=== PATIENT | female | born 1990 | race Caucasian/White ===

== ENCOUNTER 2016-04-17 15:36 | Emergency (ER) | payer OTHER ==
[~2016-04-17] VITALS: Ht 165.1 cm; Wt 57.1 kg
[~2016-04-17 15:36] MED LIST: PREN1CAP20 PO
[2016-04-17 15:54] VITALS: TEMP 36.8; Ht 165.1 cm; Wt 57.1 kg
[2016-04-17] MEDS ORDERED: KETOROLAC TROMETHAMINE 30 MG/ML VIAL IV STA (16:37)
[2016-04-17] MEDS ORDERED: ETONMIS VAGRING (16:55)
[2016-04-17] MEDS ORDERED: SULF500T36 PO (16:58)
[2016-04-17] MEDS ORDERED: GABA-112 PO (16:59)
[2016-04-17 17:04] LABS: BASO % 0.2 %; BASO ABS # 0.02 K/uL (0-0.2); COMPLETE YES; EOS % 3.1 %; HEMATOCRIT 36.6 % (37-47); IG% 0.2 %; LYMPH % 23.4 %; LYMPH ABS # 1.96 K/uL (1.2-3.4); MEAN CORPUSCULAR HEMOGLOBIN 31.3 pg (25-34); MEAN CORPUSCULAR HGB CONC 35.5 g/dl (32-36); MEAN PLATELET VOLUME 9.3 fL (7.4-10.4); MONO % 6.3 %; NEUT % 66.8 %; PLATELET COUNT 240 K/uL (130-400); RED BLOOD COUNT 4.16 M/uL (4.2-5.4); WHITE BLOOD COUNT 8.36 K/uL (4.8-10.8)
--- NOTE | 2016-04-17 17:21 | DIAGNOSTIC IMAGING REPORT ---
CHEST ONE VIEW PORTABLE CLINICAL HISTORY: Atypical chest pain and right rib pain. COMPARISON STUDY: 02/20/2014 FINDINGS: The cardiac and mediastinal contours are normal. There is no evidence of focal pulmonary consolidation. There is no evidence of failure. No pleural effusions are visualized.[ No pneumothorax is visualized. IMPRESSION: No active disease in the chest. Electronically signed by: Zachary Leo M.D. 04/17/2016 5:20 PM Dictated Date/Time: 04/17/2016 5:19 PM
[2016-04-17 17:22] LABS: ALT/SGPT 138 U/L (12-78); BLOOD UREA NITROGEN 11 mg/dl (7-18); BUN/CREATININE RATIO 13.5 (10-20); CALCIUM 8.7 mg/dl (8.5-10.1); CARBON DIOXIDE 21 mmol/L (21-32); CHLORIDE 109 mmol/L (98-107); GLUCOSE 87 mg/dl (70-99); POTASSIUM 3.9 mmol/L (3.5-5.1); SODIUM 141 mmol/L (136-145)
[2016-04-17 17:26] LABS: ALKALINE PHOSPHATASE 125 U/L (45-117); AST/SGOT 61 U/L (15-37)
[2016-04-17 17:40] LABS: PREG INTERNAL NEGATIVE QC NEG CLEAR BACKGROUND; PREG INTERNAL POSITIVE QC POS CONTROL LINE
[2016-04-17] MEDS ORDERED: OPTIRAY 320 IV PRN (17:45)
--- NOTE | 2016-04-17 17:53 | EMERGENCY ROOM VISIT NOTE ---
History Report prepared by Pao: Aidee Bowman Under the Supervision of: Dr. Camilo Osorio M.D. First contact with patient: 16:09 Chief Complaint: RIB PAIN Stated Complaint: RIGHT RIB PAIN History of Present Illness The patient is a 26 year old female who presents to the Emergency Room with complaints of worsening right-sided rib pain that started 4 hours ago. The patient states that the pain started while she was driving to class. The pain came on suddenly, but it was mild when it started and gradually got more intense. The pain took her breath away and was worse as she continued to breath. She denies doing anything that to injure or stretch the area. However, she states that the pain seems to be subsiding some now. She experienced a similar pain in the past and received an ultrasound, but the cause was not determined. The patient denies fevers, recent illness, breast pain, breast discharge, lower extremity pain or edema, hematochezia, and melena. She is also experiencing a headache, but states that she typically experiences headaches. The patient has a history of an ectopic . She has two kids at home, one is 5 and the other is 17 months. She is not breast feeding and she denies any chance of . The patient has a Nuva ring in place. The patient denies any personal or family history of blood clots. She also denies any recent travel. The patient is a smoker. Source of History: patient Onset: 4 hours ago Position: chest (right ribs) Quality: other (rib pain) Timing: worsening Modifying Factors (Worsening): breathing Associated Symptoms: + headache, No fevers, No hematochezia, No melena Note: no recent illness, no breast pain, no breast discharge, no lower extremity pain or edema Review of Systems See HPI for pertinent positives & negatives. A total of 10 systems reviewed and were otherwise negative. Past Medical & Surgical Medical Problems: (1) Abdominal pain (2) contractions (3) Dehydration (4) Diarrhea (5) Dizziness (6) Musculoskeletal strain (7) Nausea (8) Nausea vomiting and diarrhea (9) Nausea vomiting and diarrhea (10) Other specified complication, antepartum (11) Paresthesias (12) (13) contractions (14) Pyelonephritis (15) Right flank pain (16) Scoliosis (17) Scoliosis (18) Upper back pain (19) Vaginal bleeding before 22 weeks gestation (20) Vaginal bleeding during , antepartum (21) Vomiting Surgical Problems: (1) Tubal ectopic (2) Vaginal bleeding before 22 weeks gestation Old medical records were reviewed. Nurse's notes were reviewed and I agree with. Family History Patient reports no known family medical history. Social History Smoking Status: Current Every Day Smoker Alcohol Use: occasionally Drug Use: none Marital Status: single Housing Status: lives with family Occupation Status: employed Current/Historical Medications Scheduled Etonogestrel/Ethinyl Estradiol (Nuvaring), 1 EA VAGRING MONTHLY Gabapentin (Neurontin), 100 MG PO BID Sulfasalazine (Azulfidine), 1,000 MG PO DAILY Allergies Coded Allergies: No Known Allergies (Unverified , 11/09/14) Physical Exam Vital Signs Date Time Temp Pulse Resp B/P Pulse Ox O2 Delivery O2 Flow Rate FiO2 04/17/16 18:20 70 15 121/72 98 Room Air 04/17/16 15:54 36.8 87 18 145/86 98 Room Air Physical Exam General: Well developed well nourished mildly uncomfortable young female in no respiratory distress, breathing comfortably on room air. Normal speech HEENT: Normal cephalic atraumatic. Pupils are equal round and reactive to light. Extraocular movements are intact. Oropharynx is pink with moist mucous membranes. No swelling of the mouth lips or tongue. Neck: Supple with a midline trachea. No meningeal signs or stiffness, no JVD or bruits. No Stridor. Chest: Clear to auscultation bilaterally. No wheezes or rhonchi. No increased work of breathing. No reproducible tenderness. Heart: regular rate and rhythm. Abdomen: Soft nontender, nondistended without rebound guarding or rigidity. Extremities: No cyanosis clubbing or edema. No calf tenderness or assymetry Spine/Back. Non tender to palpation. No CVA tenderness Skin: Good turgor without rashes. Neurologic exam: Cranial nerves two through 12 are intact. Motor and sensation are intact and symmetrical throughout. Medical Decision & Procedures ER Provider Diagnostic Interpretation: X ray results as stated below per my interpretation and radiologist interpretation. Other radiology results as stated below per my review and radiologist interpretation: CHEST ONE VIEW PORTABLE IMPRESSION: No active disease in the chest. Electronically signed by: Zachary Leo M.D. 04/17/2016 5:20 PM Dictated Date/Time: 04/17/2016 5:[address] ANGIOGRAM OF THE CHEST IMPRESSION: 1. No CT evidence of acute pulmonary embolism 2. No evidence of pneumothorax 3. No evidence of pathologic adenopathy 4. Minimal right upper lobe airspace opacities, likely inflammatory. Electronically signed by: Zachary Leo M.D. 04/17/2016 6:15 PM Dictated Date/Time: 04/17/2016 6:10 PM BILIARY ULTRASOUND IMPRESSION: Normal study Electronically signed by: Zachary Leo M.D. 04/17/2016 7:23 PM Dictated Date/Time: 04/17/2016 7:22 PM Laboratory Results 04/17/16 16:54 Red Blood Count 4.16, Mean Corpuscular Volume 88.0, Mean Corpuscular Hemoglobin 31.3, Mean Corpuscular Hemoglobin Concent 35.5, Mean Platelet Volume 9.3, Neutrophils (%) (Auto) 66.8, Lymphocytes (%) (Auto) 23.4, Monocytes (%) (Auto) 6.3, Eosinophils (%) (Auto) 3.1, Basophils (%) (Auto) 0.2, Neutrophils # (Auto) 5.57, Lymphocytes # (Auto) 1.96, Monocytes # (Auto) 0.53, Eosinophils # (Auto) 0.26, Basophils # (Auto) 0.02 04/17/16 16:54 Test 04/17/16 16:54 04/17/16 16:58 White Blood Count 8.36 K/uL (4.8-10.8) Red Blood Count 4.16 M/uL (4.2-5.4) Hemoglobin 13.0 g/dL (12.0-16.0) Hematocrit 36.6 % (37-47) Mean Corpuscular Volume 88.0 fL (80-100) Mean Corpuscular Hemoglobin 31.3 pg (25-34) Mean Corpuscular Hemoglobin Concent 35.5 g/dl (32-36) Platelet Count 240 K/uL (130-400) Mean Platelet Volume 9.3 fL (7.4-10.4) Neutrophils (%) (Auto) 66.8 % Lymphocytes (%) (Auto) 23.4 % Monocytes (%) (Auto) 6.3 % Eosinophils (%) (Auto) 3.1 % Basophils (%) (Auto) 0.2 % Neutrophils # (Auto) 5.57 K/uL (1.4-6.5) Lymphocytes # (Auto) 1.96 K/uL (1.2-3.4) Monocytes # (Auto) 0.53 K/uL (0.11-0.59) Eosinophils # (Auto) 0.26 K/uL (0-0.5) Basophils # (Auto) 0.02 K/uL (0-0.2) RDW Standard Deviation 42.6 fL (36.4-46.3) RDW Coefficient of Variation 13.3 % (11.5-14.5) Immature Granulocyte % (Auto) 0.2 % Immature Granulocyte # (Auto) 0.02 K/uL (0.00-0.02) Anion Gap 11.0 mmol/L (3-11) Est Creatinine Clear Calc Drug Dose 95.9 ml/min Estimated GFR () 117.9 Estimated GFR (Non- 101.8 BUN/Creatinine Ratio 13.5 (10-20) Calcium Level 8.7 mg/dl (8.5-10.1) Total Bilirubin 0.3 mg/dl (0.2-1) Direct Bilirubin < 0.1 mg/dl (0-0.2) Aspartate Amino Transf (AST/SGOT) 61 U/L (15-37) Alanine Aminotransferase (ALT/SGPT) 138 U/L (12-78) Alkaline Phosphatase 125 U/L (45-117) Troponin I < 0.015 ng/ml (0-0.045) Total Protein 7.5 gm/dl (6.4-8.2) Albumin 3.4 gm/dl (3.4-5.0) Lipase 158 U/L (73-393) Human Chorionic Gonadotropin, Qual NEG (NEG) Bedside D-Dimer > 450 ng/mlFEU (0-450) Laboratory studies as stated above per my review. Medications Administered Medications (Trade) Dose Ordered Sig/Richard Route Start Time Stop Time Status Last Admin Dose Admin Ketorolac Tromethamine (Toradol Inj) 30 mg NOW STAT IV 04/17/16 16:37 04/17/16 16:38 DC 04/17/16 17:04 30 MG ECG Indication: chest pain Rate (beats per minute): 74 Rhythm: normal sinus Findings: no acute ischemic change, no ectopy Comparison ECG Date: 03/24/2014 Change: no significant change ED Course 161: Past medical records reviewed. The patient was evaluated in room A2, and a complete history and physical examination were performed. 1636: Ordered Toradol Inj 30 mg IV 1743: I reassessed the patient. She is resting comfortably. Her rib pain is improved and she states that she is just sore now. I explained the risks and benefits of a CT scan with her and she agreed to have the CT done. 1849: I reassessed and updated the patient. She agreed to getting an ultrasound done. 1926: Upon reevaluation, the patient is doing well. I discussed the results and treatment plan with her. She verbalized agreement of the treatment plan. The patient was discharged home. Medical Decision Differentials include, but are not limited to; musculoskeletal pain, pulmonary embolism, pneumothorax, acute coronary syndrome, electrolyte or metabolic abnormality. This patient comes in as described above she has right-sided chest pain that occurred abruptly. She has no rash or trauma. IV access was established and she was given Toradol 30 mg IV and felt better she still has some achiness in her chest. EKG does not suggest acute coronary syndrome or arrhythmia. Chest x -ray was unremarkable and shows no evidence to suggest pneumonia or pneumothorax or CHF. She has no electrolyte or metabolic abnormalities. Her d- dimer was elevated and in light of this, I did order a CT of her chest. There is no evidence of PE. There are some nonspecific haziness in the apex. Clinically, she has no cough or any symptoms to suggest pneumonia. I also did get an ultrasound because her LFTs are marginally elevated no evidence of gallbladder disease. This most likely is costochondritis. She is better and it is reproducible with movement of breathing. I will have her use ibuprofen for pain. She should take with food. Return if: Fever or chills, increasing pain, worsening of symptoms, any new problems or concerns. She should follow up with her doctor in 1-2 days for recheck or return to the ER if symptoms worsening in any point. She's happy with the plan and discharged to home. Impression Primary Impression: Right-sided chest pain Scribe Attestation The scribe's documentation has been prepared under my direction and personally reviewed by me in its entirety. I confirm that the note above accurately reflects all work, treatment, procedures, and medical decision making performed by me. Departure Information Dispostion Home / Self-Care Referrals Rudi Munoz M.D. (PCP) Forms HOME CARE DOCUMENTATION FORM, IMPORTANT VISIT INFORMATION, WORK / SCHOOL INSTRUCTIONS Patient Instructions My [facility] Additional Instructions Rest. Drink plenty of fluids. Use ibuprofen 600 mg every 6 hours, take with food. Return if: Increasing pain, fever or chills, worsening of symptoms, shortness of breath, any new problems or concerns. Follow up with in 1-2 days for recheck or return to the ER at any point if symptoms worsen.
--- NOTE | 2016-04-17 18:16 | DIAGNOSTIC IMAGING REPORT ---
CT ANGIOGRAM OF THE CHEST CLINICAL HISTORY: Right-sided chest pain. COMPARISON STUDY: 05/06/2012 TECHNIQUE: Following the IV administration of 119 mL of Optiray-320, CT angiogram of the thorax was performed from the thoracic inlet to the lung bases utilizing the pulmonary embolus protocol. Images are reviewed in the axial, sagittal, and coronal planes. IV contrast was administered without complication. MIP imaging was performed. CT DOSE: 189.37 mGy.cm FINDINGS: No pathologically enlarged axillary mediastinal or hilar lymph nodes were visualized. There was no evidence of thoracic aortic dilatation. There were no pulmonary artery filling defects to indicate acute pulmonary embolism. No pleural effusions are visualized. There are subtle fluffy right upper lobe airspace opacities, likely inflammatory IMPRESSION: 1. No CT evidence of acute pulmonary embolism 2. No evidence of pneumothorax 3. No evidence of pathologic adenopathy 4. Minimal right upper lobe airspace opacities, likely inflammatory. Electronically signed by: Zachary Leo M.D. 04/17/2016 6:15 PM Dictated Date/Time: 04/17/2016 6:10 PM
--- NOTE | 2016-04-17 19:24 | DIAGNOSTIC IMAGING REPORT ---
BILIARY ULTRASOUND CLINICAL HISTORY: Right upper quadrant abdominal pain COMPARISON STUDY: No previous studies for comparison. FINDINGS: The liver appears sonographically normal. There is no right-sided hydronephrosis. The pancreas appears sonographically normal. The gallbladder appears sonographically normal. There is no ductal dilatation. The common bile duct measures 2 mm. IMPRESSION: Normal study Electronically signed by: Zachary Leo M.D. 04/17/2016 7:23 PM Dictated Date/Time: 04/17/2016 7:22 PM
[2016-04-17 20:07] VITALS: BP 131/70; PULSE 67; O2SAT 99
== END 2016-04-17 20:08 | disposition home or self-care (01) ==
LOC: C.EDB 15:38 → C.EDA 20:08
DX: R07.9 Chest pain, unspecified (principal); R51 Headache; F17.210 Nicotine dependence, cigarettes, uncomplicated; Z79.899 Other long term (current) drug therapy

== ENCOUNTER → 2016-08-22 | Outpatient (CLI) | payer OTHER ==
[~2016-08-22] MED LIST changes: +CLON0.5T PO; +ETONMIS VAGRING; +GABA-112 PO; -PREN1CAP20 PO; +SULF500T36 PO
== END | disposition home or self-care (01) ==
LOC: C.PATHSPEC 17:20
PROVIDERS: ATTEND Physician Assistant
DX: N93.0 Postcoital and contact bleeding (principal)

== ENCOUNTER → 2016-08-22 | Outpatient (CLI) | payer OTHER ==
[2016-08-26 10:49] LABS: CHLAMYDIA TRACH RNA*** NOT DETECTED (NOT DETECTED); GC (NEIS GONORRHOEAE)RNA** NOT DETECTED (NOT DETECTED)
== END | disposition home or self-care (01) ==
LOC: C.LABSPEC 16:53
PROVIDERS: ATTEND Physician Assistant
DX: N93.0 Postcoital and contact bleeding (principal)

== ENCOUNTER → 2016-08-22 | Outpatient (CLI) | payer OTHER | END | disposition home or self-care (01) | LOC: C.PAPS 09:56 | PROVIDERS: ATTEND Physician Assistant | DX: Z12.4 Encounter for screening for malignant neoplasm of cervix (principal) ==

== ENCOUNTER 2016-09-29 12:09 | Emergency (ER) | payer OTHER ==
[~2016-09-29] VITALS: Ht 165.1 cm; Wt 58.0 kg
[~2016-09-29 12:09] MED LIST changes: -CLON0.5T PO
[2016-09-29 12:14] VITALS: TEMP 36.8; Ht 165.1 cm; Wt 58.0 kg
--- NOTE | 2016-09-29 12:45 | DIAGNOSTIC IMAGING REPORT ---
RIGHT FOOT MIN 3 VIEWS ROUTINE CLINICAL HISTORY: fall Right trauma. Pain. COMPARISON: None. DISCUSSION: The bones and joint spaces appear intact. There is no evidence of fracture, dislocation or bony disease. There is no evidence for soft tissue swelling. IMPRESSION: Negative study. The above report was generated using voice recognition software. It may contain grammatical, syntax or spelling errors. Electronically signed by: Geremias Moscoso M.D. 09/29/2016 12:44 PM Dictated Date/Time: 09/29/2016 12:43 PM
[2016-09-29] MEDS ORDERED: CLON0.5T PO (12:51)
--- NOTE | 2016-09-29 13:24 | EMERGENCY ROOM VISIT NOTE ---
ED Visit Note First contact with patient: 12:31 CHIEF COMPLAINT: Foot pain HISTORY OF PRESENT ILLNESS: This 26-year-old female patient presents to the emergency department complaining of swelling and pain in the right foot at rest and worse with weight bearing. The patient states she was up on someone's shoulders last night, when she got down she stepped onto the right foot and twisted it with immediate pain. The patient rates the pain as throbbing and 7/ 10. The patient has not taken any medications for relief of the pain. The patient is not able to walk. No numbness or weakness. No ankle pain. There are no lacerations of the foot. The patient is able to move all of their toes and their ankle without pain. No previous fracture to this foot. REVIEW OF SYSTEMS: GENERAL: A 6 system review of systems was completed with positives and pertinent negatives in the HPI. ALLERGIES: See chart MEDICATIONS: See chart PMH: See chart SOCIAL HISTORY: See chart PHYSICAL EXAM: Vital Signs: Reviewed Nurse's notes, vital signs stable. GENERAL : Alert and cooperative, in no acute distress, but appears in pain, well- developed, well-nourished. MUSCULOSKELATAL: There is no visual deformity of the right foot. There is no erythema, but there is ecchymosis. There is no warmth. There is tenderness and swelling over the lateral dorsum of the right foot. There is no tenderness over the lateral or medial malleolus. No tenderness of the tib/fib. The range of motion of the foot and ankle is significantly limited secondary to pain. There is no tenderness over the plantar fascia. The skin is intact and there are no lacerations or puncture wounds. Dorsalis pedis pulse 2+. Capillary refill less than 2 seconds. EMERGENCY DEPARTMENT COURSE: I examined the patient. An X-ray of the right foot was reviewed by myself and radiologist and reveals no acute fracture. I suspect a lateral ligamentous injury from twisting of the foot/ankle. The patient was placed in general ankle splint for stabilization of the lateral ligaments and instructed on the use of crutches. The patient was instructed to follow up with her PCP or orthopedics for further evaluation. Patient was provided with a work note. The patient was discharged home in good condition. Problem List Medical Problems: (1) Abdominal pain Status: Resolved (2) contractions Status: Resolved (3) Dehydration Status: Resolved (4) Diarrhea Status: Resolved (5) Dizziness Status: Resolved (6) Musculoskeletal strain Status: Resolved (7) Nausea Status: Resolved (8) Nausea vomiting and diarrhea Status: Resolved (9) Nausea vomiting and diarrhea Status: Resolved (10) Other specified complication, antepartum Status: Resolved (11) Paresthesias Status: Resolved (12) Status: Resolved (13) contractions Status: Resolved (14) Pyelonephritis Status: Resolved (15) Right flank pain Status: Resolved (16) Scoliosis Status: Chronic (17) Scoliosis Status: Resolved (18) Upper back pain Status: Resolved (19) Vaginal bleeding before 22 weeks gestation Status: Resolved (20) Vaginal bleeding during , antepartum Status: Resolved (21) Vomiting Status: Resolved Surgical Problems: (1) Tubal ectopic Status: Resolved (2) Vaginal bleeding before 22 weeks gestation Status: Resolved Current/Historical Medications Scheduled Clonazepam (Klonopin), 0.25 MG PO TID Etonogestrel/Ethinyl Estradiol (Nuvaring), 1 EA VAGRING MONTHLY Allergies Coded Allergies: No Known Allergies (Unverified , 09/29/16) Vital Signs Date Time Temp Pulse Resp B/P (MAP) Pulse Ox O2 Delivery O2 Flow Rate FiO2 09/29/16 14:14 84 20 121/70 97 09/29/16 12:14 36.8 94 20 110/67 97 Room Air Medications Administered Medications (Trade) Dose Ordered Sig/Richard Route Start Time Stop Time Status Last Admin Dose Admin Ibuprofen (Motrin Tab) 600 mg NOW STAT PO 09/29/16 13:28 09/29/16 13:29 DC 09/29/16 13:34 600 MG Departure Information Impression Primary Impression: Contusion of foot Additional Impression: Right foot sprain Dispostion Home / Self-Care Condition GOOD Referrals Rudi Munoz M.D. (PCP) Basim Blanchard M.D. Patient Instructions ED Contusion Foot, ED Sprain Foot, My [facility] Additional Instructions Ice and elevation for 24-48 hrs to help reduce pain and swelling. Ibuprofen 600mg and Tylenol 1000 mg every 6-8 hours for the pain. Avoid weight bearing and use crutches until the pain subsides and you can walk without a limp. Wear the ankle splint for comfort. Follow up with family doctor or orthopedic surgeon if symptoms persist in 5-7 days. Work Instructions Return To Work: after follow-up (no work until cleared by PCP or orthopedic doctor) Problem Qualifiers Primary Impression: Contusion of foot Encounter type: initial encounter Laterality: right Qualified Codes: S90.31XA - Contusion of right foot, initial encounter Additional Impression: Right foot sprain Encounter type: initial encounter Qualified Codes: S93.601A - Unspecified sprain of right foot, initial encounter
[2016-09-29] MEDS ORDERED: IBUPROFEN 600 MG TAB PO STA (13:28)
[2016-09-29 14:14] VITALS: BP 121/70; PULSE 84; O2SAT 97
== END 2016-09-29 14:15 | disposition home or self-care (01) ==
LOC: C.EDB 12:09 → C.EDD 14:15
DX: S90.31XA Contusion of right foot, initial encounter (principal); S93.601A Unspecified sprain of right foot, initial encounter; X50.1XXA Overexertion from prolonged static or awkward postures, initial encounter; Z79.899 Other long term (current) drug therapy

== ENCOUNTER 2017-07-09 19:36 | Emergency (ER) | payer OTHER ==
[~2017-07-09] VITALS: Ht 165.1 cm; Wt 55.2 kg
[~2017-07-09 19:36] MED LIST changes: +CLON0.5T PO; -GABA-112 PO; -SULF500T36 PO
[2017-07-09 19:45] VITALS: TEMP 36.6; Ht 165.1 cm; Wt 55.2 kg
--- NOTE | 2017-07-09 20:09 | EMERGENCY ROOM VISIT NOTE ---
History Report prepared by Pao: Bethany Rosas Under the Supervision of: Dr. Arlen Kaba D.O. First contact with patient: 19:54 Chief Complaint: ABDOMINAL PAIN Stated Complaint: RIGHT SIDE PAIN Nursing Triage Summary: patient reports abdominal pain in RLQ for about 1 hour. Patient states "pain comes and goes like contractions." History of Present Illness The patient is a 27 year old female who presents to the Emergency Room with complaints of constant right-sided abdominal and flank pain beginning an hour prior to arrival. The patient also reports vomiting from the pain but denies headache, change in vision, fevers, chest pain, shortness of breath, diarrhea, pain with urination, and melena. She states that she has had this pain before but is unsure of the cause. The patient denies a history of kidney stones, an appendectomy, and cholecystectomy. The patient reports that there is a chance she may be . Review of EMR: She had an ultrasound gallbladder last year that was normal. She also had a CT angiochest done at the same time that was normal. Source of History: patient Onset: an hour prior to arrival Position: abdomen (right-sided), other (right flank ) Quality: other (pain) Timing: constant Associated Symptoms: + vomiting, No fevers Review of Systems See HPI for pertinent positives & negatives. A total of 10 systems reviewed and were otherwise negative. Past Medical & Surgical Medical Problems: (1) Abdominal pain (2) contractions (3) Dehydration (4) Diarrhea (5) Dizziness (6) Musculoskeletal strain (7) Nausea (8) Nausea vomiting and diarrhea (9) Nausea vomiting and diarrhea (10) Other specified complication, antepartum (11) Paresthesias (12) (13) contractions (14) Pyelonephritis (15) Right flank pain (16) Scoliosis (17) Scoliosis (18) Upper back pain (19) Vaginal bleeding before 22 weeks gestation (20) Vaginal bleeding during , antepartum (21) Vomiting Surgical Problems: (1) Tubal ectopic (2) Vaginal bleeding before 22 weeks gestation Family History Gallbladder disease Hypertension Social History Smoking Status: Current Every Day Smoker Alcohol Use: occasionally Drug Use: none Marital Status: single Housing Status: lives with family Occupation Status: employed Current/Historical Medications Scheduled Amphetamine-Dextroamphetamine 15MG (Adderall Xr 15MG), 15 MG PO DAILY Clonazepam (Klonopin), 0.25 MG PO TID Etonogestrel/Ethinyl Estradiol (Nuvaring), 1 EA VAGRING MONTHLY Allergies Coded Allergies: No Known Allergies (Unverified , 07/09/17) Physical Exam Vital Signs Date Time Temp Pulse Resp B/P (MAP) Pulse Ox O2 Delivery O2 Flow Rate FiO2 07/09/17 21:32 68 20 122/82 96 07/09/17 21:00 79 07/09/17 19:45 36.6 82 22 120/75 96 Room Air Physical Exam GENERAL: alert, well appearing, well nourished, moderate distress, non-toxic. Patient was squatted next to bed holding an emesis bag. EYE EXAM: normal conjunctiva, PERRL and EOM's grossly intact OROPHARYNX: no exudate, no erythema, lips, buccal mucosa, and tongue normal and mucous membranes are moist NECK: supple, no nuchal rigidity, no adenopathy, non-tender LUNGS: Clear to auscultation. Normal chest wall mechanics HEART: no murmurs, S1 normal and S2 normal ABDOMEN: abdomen soft, right upper quadrant tenderness, no right flank tenderness, normo-active bowel sounds, no masses, no rebound or guarding. BACK: Back is symmetrical on inspection and there is no deformity, no midline tenderness, no CVA tenderness. SKIN: no rashes and no bruising UPPER EXTREMITIES: upper extremities are grossly normal. LOWER EXTREMITIES: No pitting edema. NEURO EXAM: Normal sensorium, cranial nerves II-XII intact, normal speech, no weakness of arms, no weakness of legs. Medical Decision & Procedures Laboratory Results 07/09/17 20:00 Red Blood Count 4.39, Mean Corpuscular Volume 89.7, Mean Corpuscular Hemoglobin 31.2, Mean Corpuscular Hemoglobin Concent 34.8, Mean Platelet Volume 9.2, Neutrophils (%) (Auto) 56.5, Lymphocytes (%) (Auto) 33.4, Monocytes (%) (Auto) 7.2, Eosinophils (%) (Auto) 2.2, Basophils (%) (Auto) 0.4, Neutrophils # (Auto) 6.33, Lymphocytes # (Auto) 3.74, Monocytes # (Auto) 0.81, Eosinophils # (Auto) 0.25, Basophils # (Auto) 0.05 07/09/17 20:00 Test 07/09/17 20:00 07/09/17 20:36 White Blood Count 11.21 K/uL (4.8-10.8) Red Blood Count 4.39 M/uL (4.2-5.4) Hemoglobin 13.7 g/dL (12.0-16.0) Hematocrit 39.4 % (37-47) Mean Corpuscular Volume 89.7 fL (80-100) Mean Corpuscular Hemoglobin 31.2 pg (25-34) Mean Corpuscular Hemoglobin Concent 34.8 g/dl (32-36) Platelet Count 293 K/uL (130-400) Mean Platelet Volume 9.2 fL (7.4-10.4) Neutrophils (%) (Auto) 56.5 % Lymphocytes (%) (Auto) 33.4 % Monocytes (%) (Auto) 7.2 % Eosinophils (%) (Auto) 2.2 % Basophils (%) (Auto) 0.4 % Neutrophils # (Auto) 6.33 K/uL (1.4-6.5) Lymphocytes # (Auto) 3.74 K/uL (1.2-3.4) Monocytes # (Auto) 0.81 K/uL (0.11-0.59) Eosinophils # (Auto) 0.25 K/uL (0-0.5) Basophils # (Auto) 0.05 K/uL (0-0.2) RDW Standard Deviation 43.1 fL (36.4-46.3) RDW Coefficient of Variation 13.3 % (11.5-14.5) Immature Granulocyte % (Auto) 0.3 % Immature Granulocyte # (Auto) 0.03 K/uL (0.00-0.02) Prothrombin Time 10.7 SECONDS (9.0-12.0) Prothromb Time International Ratio 1.0 (0.9-1.1) Anion Gap 4.0 mmol/L (3-11) Est Creatinine Clear Calc Drug Dose 96.9 ml/min Estimated GFR () 124.6 Estimated GFR (Non- 107.5 BUN/Creatinine Ratio 8.0 (10-20) Calcium Level 9.5 mg/dl (8.5-10.1) Magnesium Level 2.0 mg/dl (1.8-2.4) Total Bilirubin 0.6 mg/dl (0.2-1) Aspartate Amino Transf (AST/SGOT) 14 U/L (15-37) Alanine Aminotransferase (ALT/SGPT) 30 U/L (12-78) Alkaline Phosphatase 57 U/L (45-117) Total Protein 7.6 gm/dl (6.4-8.2) Albumin 3.7 gm/dl (3.4-5.0) Globulin 3.9 gm/dl (2.5-4.0) Albumin/Globulin Ratio 1.0 (0.9-2) Lipase 154 U/L (73-393) Human Chorionic Gonadotropin, Qual NEG (NEG) Bedside Lactic Acid Venous 0.96 mmol/L (0.90-1.70) Laboratory results per my review. Medications Administered Medications (Trade) Dose Ordered Sig/Richard Route Start Time Stop Time Status Last Admin Dose Admin Sodium Chloride 1,000 ml @ 999 mls/hr Q1H1M STAT IV 07/09/17 20:20 07/09/17 21:20 DC 07/09/17 20:28 999 MLS/HR Prochlorperazine Edisylate (Compazine Inj) 5 mg NOW STAT IV 07/09/17 20:20 07/09/17 20:23 DC 07/09/17 20:27 5 MG Diphenhydramine HCl (Benadryl Inj) 25 mg NOW STAT IV 07/09/17 20:20 07/09/17 20:23 DC 07/09/17 20:28 25 MG ED Course 2004: The patient was evaluated in room B12B. A complete history and physical exam was performed. 2019: Ordered Benadryl Inj 25 mg IV, Compazine Inj 5 mg IV. 2127: The patient left against medical advice. Medical Decision The patient is a 27 year old female who presents to the ED with complaints of abdominal pain. Differential diagnosis: Etiologies such as appendicitis, diverticulitis, PUD, biliary pathology, UTI, pancreatitis, obstruction, mesenteric ischemia, aortic pathology, infections, inflammatory bowel disease, renal colic, as well as others were entertained. Patient here in significant distress on initial evaluation, after labs resulted normal review of EMR, patient stated that she wished to leave. Discussed with her unknown etiology of her pain my concern that she may need imaging to better evaluate for underlying pathology. Patient refused stating she has had these pains before and they go away on their own. The patient has had prior right upper quadrant ultrasound and CAT scan of the chest she has never had a CAT scan of the abdomen or pelvis or a renal ultrasound. I discussed with her possible differential diagnosis of her pain and any worse case scenario including possible long-term disability or . Patient verbalized understanding of this and is willing to accept responsibly for her condition and is choosing to go home AGAINST MEDICAL ADVICE. [place] Drug Monitoring Program Search Results: patient reviewed within database, no issues identified Medication Reconcilliation Current Medication List: was personally reviewed by me Blood Pressure Screening Patient's blood pressure: Normal blood pressure Impression Primary Impression: Right flank pain Additional Impressions: RUQ pain Vomiting Scribe Attestation The scribe's documentation has been prepared under my direction and personally reviewed by me in its entirety. I confirm that the note above accurately reflects all work, treatment, procedures, and medical decision making performed by me. Departure Information Dispostion Against Medical Advice Referrals Rudi Munoz M.D. (PCP) Forms HOME CARE DOCUMENTATION FORM, IMPORTANT VISIT INFORMATION Patient Instructions My [facility] Additional Instructions You are welcome to return to the emergency room at any time. By leaving AGAINST MEDICAL ADVICE you are assuming responsibility for your condition and any possible complications. Because we have not yet completed your evaluation, we did not yet know the etiology of your pain and vomiting. Please follow-up with your family doctor as soon as possible given your episode of this. There are several things which could explain your pain and vomiting, and if these are untreated they could result in long-term disability or even . Problem Qualifiers Additional Impressions: Vomiting Vomiting type: unspecified Vomiting Intractability: non-intractable Nausea presence: with nausea Qualified Codes: R11.2 - Nausea with vomiting, unspecified
[2017-07-09] MEDS ORDERED: DiphenhydrAMINE HCL 50 MG/ML VIAL IV STA (20:20)
[2017-07-09] MEDS ORDERED: PROCHLORPERAZINE 5 MG/ML 2 ML VIAL IV STA (20:20)
[2017-07-09] MEDS ORDERED: SODIUM CHLORIDE 0.9% 1000ML 1,000 ML IV STA (20:20)
[2017-07-09] MEDS ORDERED: DiphenhydrAMINE HCL 50 MG/ML VIAL ONE (20:23)
[2017-07-09] MEDS ORDERED: PROCHLORPERAZINE 5 MG/ML 2 ML VIAL ONE (20:23)
[2017-07-09] MEDS ORDERED: AMPH15CA7 PO (20:32)
[2017-07-09 20:43] LABS: BASO % 0.4 %; BASO ABS # 0.05 K/uL (0-0.2); EOS % 2.2 %; EOS ABS # 0.25 K/uL (0-0.5); HEMATOCRIT 39.4 % (37-47); HEMOGLOBIN 13.7 g/dL (12.0-16.0); IG# 0.03 K/uL (0.00-0.02); LYMPH % 33.4 %; LYMPH ABS # 3.74 K/uL (1.2-3.4); MEAN CELL VOLUME 89.7 fL (80-100); MEAN CORPUSCULAR HEMOGLOBIN 31.2 pg (25-34); MEAN CORPUSCULAR HGB CONC 34.8 g/dl (32-36); MEAN PLATELET VOLUME 9.2 fL (7.4-10.4); MONO % 7.2 %; MONO ABS # 0.81 K/uL (0.11-0.59); NEUT % 56.5 %; NEUT ABS # 6.33 K/uL (1.4-6.5); PLATELET COUNT 293 K/uL (130-400); RED CELL DISTRIBUTION WIDTH CV 13.3 % (11.5-14.5); RED CELL DISTRIBUTION WIDTH SD 43.1 fL (36.4-46.3); WHITE BLOOD COUNT 11.21 K/uL (4.8-10.8)
[2017-07-09 20:53] LABS: ALBUMIN 3.7 gm/dl (3.4-5.0); CALCIUM 9.5 mg/dl (8.5-10.1); CREATININE 0.76 mg/dl (0.60-1.20); POTASSIUM 3.8 mmol/L (3.5-5.1)
[2017-07-09 20:56] LABS: TOTAL PROTEIN 7.6 gm/dl (6.4-8.2)
[2017-07-09 21:32] VITALS: BP 122/82; PULSE 68; O2SAT 96
== END 2017-07-09 21:33 | disposition left against medical advice (07) ==
LOC: C.EDB 19:37
DX: R10.11 Right upper quadrant pain (principal); R11.2 Nausea with vomiting, unspecified; F17.210 Nicotine dependence, cigarettes, uncomplicated; Z79.899 Other long term (current) drug therapy

== ENCOUNTER → 2017-11-04 | Outpatient (CLI) | payer OTHER ==
[~2017-11-04] MED LIST changes: +AMPH15CA7 PO
== END | disposition home or self-care (01) ==
LOC: C.LABSPEC 16:05
PROVIDERS: ATTEND Obstetrics & Gynecology
DX: N93.0 Postcoital and contact bleeding (principal)

== ENCOUNTER → 2017-11-04 | Outpatient (CLI) | payer OTHER | END | disposition home or self-care (01) | LOC: C.PATHSPEC 16:11 | PROVIDERS: ATTEND Obstetrics & Gynecology | DX: N93.0 Postcoital and contact bleeding (principal) ==

== ENCOUNTER → 2017-11-04 | Outpatient (CLI) | payer OTHER | END | disposition home or self-care (01) | LOC: C.PAPS 16:18 | PROVIDERS: ATTEND Obstetrics & Gynecology | DX: Z12.4 Encounter for screening for malignant neoplasm of cervix (principal); N93.0 Postcoital and contact bleeding ==

== ENCOUNTER 2021-11-16 11:35 | Inpatient (IN) ==
--- NOTE | 2021-11-16 12:19 | Emergency Department Note ---
History of Present Illness General Chief complaint: Head Pain Stated complaint: TINGLING IN HEAD, CT SCAN REF BY CIPRIANO ROCK Time Seen by Provider: 11/16/21 11:51 Source: patient and family History of Present Illness Provider complaint: Dizziness and head discomfort Onset (ago): hour(s) Location: head Radiation: other (Radiates throughout her entire body) Pain Consistency: + constant Maximum Pain Intensity: 0 Quality: + other (Vibratory with loss of balance) Exacerbated By: + other (Movement) Associated symptoms: + nausea/vomiting and + other (Very slow to answer questions, mild slurring of the speech per mother, difficulty walking); no chest pain, no cough, no fever/chills, no headaches, no seizure or no shortness of breath This is a 31-year-old female who presents with head discomfort starting at approximately 9 AM while at work. She woke up at 7 AM and had no symptoms. She states she feels a vibratory sense to the sides of her head and they radiate down to her entire body. She states it is worse when she moves and had to asked the attendant to slow down with a wheelchair because that made it worse as well. Accompanying this symptom is difficulty speaking. She states she is slow to answer questions but she does not have trouble finding words or understanding. Her mother states that she seemed slurred in her speech. She feels very dizzy especially when she tries to stand or walk. She cannot walk because she feels very off balance. She does not feel like the room is spinning. She states that if she moves her head quickly she will get very dizzy. She denies any visual loss or double vision. She denies any focal numbness or weakness. She denies any pain to her head or any history of migraines. She is not having trouble swallowing. She denies any neck pain, chest pain, shortness of breath, abdominal pain, diarrhea or urinary symptoms. She is not on control. She does state that she has been smoking more frequently recently. Her father had a history of an NC at age 40. Her mother denies any family history of clotting d isorders or early anticoagulation at a young age in the family. She denies any history of MS. She does have a prior history of seizure disorder with tonic- clonic seizures but she stopped having seizures in 2009 and is not on any medication for this. She does have a history of psoriatic arthritis and depression and anxiety. She denies hypertension or diabetes. Home Medications Medication Instructions Recorded Confirmed Type clonazepam 0.5 mg tablet 1.5 mg PO DAILY 11/23/17 11/16/21 History dextroamphetamine-amphetamine 15 15 mg PO QAM 11/23/17 11/16/21 History mg tablet NuvaRing 0.12 mg-0.015 mg/24 hr 1 vag ring vaginal Q4WK #3 ea 03/30/21 11/16/21 Rx vaginal (etonogestrel-ethinyl estradiol) clonazepam 0.5 mg tablet 1 mg PO PM 11/16/21 11/16/21 History clonidine HCl 0.1 mg tablet 0.15 mg PO HS 11/16/21 11/16/21 History cyanocobalamin (vitamin B-12) 500 500 mcg PO DAILY 11/16/21 11/16/21 History mcg tablet (Vitamin B-12) dextroamphetamine-amphetamine 10 10 mg PO QPM 11/16/21 11/16/21 History mg tablet hydroxychloroquine 200 mg tablet 200 mg PO HS 11/16/21 11/16/21 History metoclopramide HCl 5 mg tablet 5 mg PO TIDM 11/16/21 11/16/21 History multivitamin 1 tab PO DAILY 11/16/21 11/16/21 History secukinumab 150 mg/mL subcutaneous 150 mg subcut UD 11/16/21 11/16/21 History pen injector (Cosentyx Pen 300 mg/2 Pens () Allergies Allergy/AdvReac Type Severity Reaction Status Date / Time No Known Allergies Allergy Verified 09/30/21 22:06 Past Med/Surg History Medical History (Updated 11/16/21 @ 19:59 by Wilman García MD) ADHD Anxiety Depression Encounter for pre-operative examination Encounter for surveillance of vaginal ring hormonal contraceptive device H/O chlamydia infection (2017) History of ectopic (2013) Hx of peptic ulcer Migraine hx Psoriatic arthritis Scoliosis 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 no seizures since 2009. Surgical History History of esophagogastroduodenoscopy (EGD) S/P dilation and curettage D&E S/P laparoscopy (2014) Excision of ectopic and Left salpingectomy [place] teeth removed Family History (Updated 11/16/21 @ 15:17 by Shruti Hinson PA-C) Father Cardiac pacemaker Grandmother (Paternal) Thyroid disease Other Coronary heart disease No family history of adverse response to anesthesia Stroke Social History (Updated 11/16/21 @ 14:46 by Shruti Hinson PA-C) Smoking Status: Current every day smoker Tobacco Type: Cigarettes packs per day: 1.5; Years Smoked: 19; Second Hand Exposure: Yes; Hx Alcohol Use: Yes Alcohol type: beer and wine Alcohol Intake Frequency Comment: >5 drinks on weekends Hx Substance Use: No Preferred Language: Vietnamese Communication Ability: Effective 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 and A total of 10 systems reviewed and were otherwise negative Physical Exam Vital Signs Vital Signs - 24 hr 11/16/21 11:37 11/16/21 12:32 11/16/21 13:00 Temperature 36.8 C Temperature Source Temporal Artery Scan Pulse Rate 72 Pulse Rate [Right Finger] 94 H 81 Pulse Rhythm [Right Finger] Regular Regular Respiratory Rate 18 22 21 Respiratory Depth Normal Normal Blood Pressure 130/94 Blood Pressure [Right Arm] 152/92 H 137/85 Blood Pressure Mean 106 Blood Pressure Mean [Right Arm] 112 102 Pulse Oximetry 95 97 98 Oxygen Delivery Method Room Air Room Air Room Air Sepsis Recent Fever Within 48 Hours No Sepsis New/Unexplained Change in Mental Status No Sepsis Action Taken by Nursing No Action Required 11/16/21 13:19 11/16/21 13:45 11/16/21 13:30 Temperature Temperature Source Pulse Rate Pulse Rate [Right Finger] 68 69 70 Pulse Rhythm [Right Finger] Regular Regular Respiratory Rate 22 20 22 Respiratory Depth Normal Normal Normal Blood Pressure Blood Pressure [Right Arm] 127/75 118/78 115/70 Blood Pressure Mean Blood Pressure Mean [Right Arm] 92 91 85 Pulse Oximetry 99 99 100 Oxygen Delivery Method Room Air Room Air Room Air Sepsis Recent Fever Within 48 Hours Sepsis New/Unexplained Change in Mental Status Sepsis Action Taken by Nursing Constitutional: Vital signs reviewed. Eyes: Pupils are equal round reactive to light. Conjunctiva are noninjected. ENT: Pharynx is clear without erythema or exudate. Mucous membranes are moist. Neck supple without meningeal signs. Respiratory: Clear to auscultation bilaterally. Breath sounds are equal bilaterally. Cardiovascular: Regular rate and rhythm. No rubs or gallops. GI: Soft, nondistended and nontender. Bowel sounds are present. Musculoskeletal: No peripheral edema. No lower extremity tenderness. Integumentary: No cyanosis. or jaundice. Neurologic: The patient is awake and alert. Cranial nerves II-XII are intact. Motor is 5 out of 5 in the left upper and lower extremities. About 4-5 in the right upper and lower extremities. Some slight drift to the right leg. Some slight dysarthria and slow to answer questions. Sensation is intact to light touch all extremities. No pronator drift. No limb ataxia. Very unsteady narrow based gait. No dysdiadochokinesis. Psychiatric: Anxious Course Administered Medications Miscellaneous (Remove Nicoderm Patch) 1 each N/A DAILY@0859 [facility] Stop: 12/16/21 17:06 Last Admin: 11/16/21 18:28 Dose: Not Given Documented By: PHANI Nicotine (Nicotine 21 Mg/24 Hr Tdsy) 21 mg TD QAM [facility] Stop: 12/16/21 17:07 Last Admin: 11/16/21 18:27 Dose: 21 mg Documented By: PHANI Discontinued Medications Gadobutrol (Gadobutrol 65ml Vial) 5.8 ml IV ONCE ONE Stop: 11/16/21 17:44 Last Admin: 11/16/21 17:44 Dose: 5.8 ml Documented By: [facility] Tenecteplase 15 mg/ Syringe 3 mls @ 38.4 mls/min IV NOW ONE; Protocol Stop: 11/16/21 13:31 Last Admin: 11/16/21 13:17 Dose: 38.4 mls/min Documented By: KAMARI Co-signed By: CASTRO Ioversol (Optiray 300 500ml) 120 ml IV ONCE ONE Stop: 11/16/21 12:24 Last Admin: 11/16/21 12:24 Dose: 120 ml Documented By: ANUJA Miscellaneous (Stat Iv) 1 each N/A NOW [facility] Stop: 11/16/21 13:13 Last Admin: 11/16/21 16:19 Dose: Not Given Documented By: PHANI Sodium Chloride (Sodium Chloride 0.9% 10ml Flush) 20 ml IV NOW STA Stop: 11/16/21 13:13 Last Admin: 11/16/21 16:19 Dose: Not Given Documented By: PAHNI Critical Care Time Critical Care Time: Yes Total Critical Care Time: 80 I have personally spent approximately 80 minutes of critical care time in the direct management of this patient. This includes bedside care, interpretation of diagnostic studies, and testing, discussion with consultants, patient, and family members, and other required patient management activities. These minutes are in excess of all separately billable procedures. Medical Decision Making Differential Diagnosis CVA, TIA, complex migraine, intracranial mass, intracranial hemorrhage, demyelinating disease, metabolic derangement Medical Records Attestation: I reviewed the patient's medical records. I did perform a limited focused review of portions of the patient's old chart on the electronic medical record. The patient has had no recent pertinent visits to this hospital. Home Medications Current Medication List: was personally reviewed by me Laboratory Data Attestation: I reviewed the patient's lab results. Result diagrams: 11/16/21 12:10 11/16/21 12:10 Lab Results 11/16/21 11/16/21 11/16/21 Range/Units 12:10 12:10 12:10 WBC 7.45 (4.8-10.8) K/ul RBC 4.95 (3.93-5.22) M/uL Hgb 15.1 (12.0-16.0) g/dl POC Hgb (12.0-16.0) g/dl Hct 44.4 (34.1-44.9) % POC Hct (37-47) % MCV 89.7 (80.0-100.0) fL MCH 30.5 (25.0-34.0) pg MCHC 34.0 (32.0-36.0) g/dL RDW Std Deviation 41.3 (36.4-46.3) fL RDW Coeff of Adal 12.5 (11.5-14.5) % Plt Count 278 (130-400) K/uL MPV 9.5 (9.4-12.3) fL Immature Gran % (Auto) 0.1 % Neut % (Auto) 60.4 % Lymph % (Auto) 28.2 % [place] % (Auto) 9.3 % Eos % (Auto) 1.3 % Baso % (Auto) 0.7 % Neut # (Auto) 4.50 (1.4-6.5) K/uL Lymph # (Auto) 2.10 (1.2-3.4) K/uL [place] # (Auto) 0.69 (0.24-0.82) K/uL Eos # (Auto) 0.10 (0-0.50) K/uL Baso # (Auto) 0.05 (0-0.2) K/uL Immature Gran # (Auto) 0.01 (0.00-0.02) K/uL ESR (0-20) mm/hr PT 11.4 (9.0-12.0) Seconds INR 1.1 (0.9-1.1) APTT 27.2 (21.0-31.0) Seconds PTT Ratio 1.0 POC Sodium (135-144) mmol/L Sodium 138 (136-145) mmol/L POC Potassium (3.3-5.0) mmol/L Potassium 4.1 (3.5-5.1) mmol/L POC Chloride (101-112) mmol/L Chloride 104 (98-107) mmol/L Carbon Dioxide 24 (21-32) mmol/L POC Total CO2 (24-31) mmol/L Anion Gap 10 (3-11) POC Anion Gap (16-25) mmol/L POC BUN (7-18) mg/dl BUN 9 (6-23) mg/dl Creatinine 0.77 (0.6-1.2) mg/dl POC Creatinine (0.6-1.3) mg/dl Est Cr Clr Drug Dosing 95.3 ml/min Est GFR ( Amer) 119.2 ml/min Est GFR (Non-Af Amer) 102.9 ml/min BUN/Creatinine Ratio 11.7 (10-20) Glucose 77 (70-99(Fasting)) mg/dl POC Glucose (other) (70-99) mg/dl Calcium 10.4 H (8.5-10.1) mg/dl POC Ioniz Calcium Carmina (1.12-1.32) mmol/l Magnesium 1.9 (1.7-2.4) mg/dl Total Bilirubin 1.0 (0.2-1.0) mg/dl AST 19 (13-39) U/L ALT 15 (7-52) U/L Alkaline Phosphatase 48 (34-104) U/L Troponin I High Sens 3.1 (0-14) pg/ml C-Reactive Protein (0-0.5) mg/dl Total Protein 8.0 (6.0-8.3) gm/dl Albumin 4.9 (3.4-5.0) gm/dl Globulin 3.1 (2.5-4.0) gm/dl Albumin/Globulin Ratio 1.6 (0.9-2) HCG, Qual (Negative) SARS-CoV-2, RNA, NAAT (NEGATIVE) Blood Type Antibody Screen 11/16/21 11/16/21 11/16/21 Range/Units 12:10 12:10 12:11 WBC (4.8-10.8) K/ul RBC (3.93-5.22) M/uL Hgb (12.0-16.0) g/dl POC Hgb (12.0-16.0) g/dl Hct (34.1-44.9) % POC Hct (37-47) % MCV (80.0-100.0) fL MCH (25.0-34.0) pg MCHC (32.0-36.0) g/dL RDW Std Deviation (36.4-46.3) fL RDW Coeff of Adal (11.5-14.5) % Plt Count (130-400) K/uL MPV (9.4-12.3) fL Immature Gran % (Auto) % Neut % (Auto) % Lymph % (Auto) % [place] % (Auto) % Eos % (Auto) % Baso % (Auto) % Neut # (Auto) (1.4-6.5) K/uL Lymph # (Auto) (1.2-3.4) K/uL [place] # (Auto) (0.24-0.82) K/uL Eos # (Auto) (0-0.50) K/uL Baso # (Auto) (0-0.2) K/uL Immature Gran # (Auto) (0.00-0.02) K/uL ESR 21 H (0-20) mm/hr PT (9.0-12.0) Seconds INR (0.9-1.1) APTT (21.0-31.0) Seconds PTT Ratio POC Sodium (135-144) mmol/L Sodium (136-145) mmol/L POC Potassium (3.3-5.0) mmol/L Potassium (3.5-5.1) mmol/L POC Chloride (101-112) mmol/L Chloride (98-107) mmol/L Carbon Dioxide (21-32) mmol/L POC Total CO2 (24-31) mmol/L Anion Gap (3-11) POC Anion Gap (16-25) mmol/L POC BUN (7-18) mg/dl BUN (6-23) mg/dl Creatinine (0.6-1.2) mg/dl POC Creatinine (0.6-1.3) mg/dl Est Cr Clr Drug Dosing ml/min Est GFR ( Amer) ml/min Est GFR (Non-Af Amer) ml/min BUN/Creatinine Ratio (10-20) Glucose (70-99(Fasting)) mg/dl POC Glucose (other) (70-99) mg/dl Calcium (8.5-10.1) mg/dl POC Ioniz Calcium [place] (1.12-1.32) mmol/l Magnesium (1.7-2.4) mg/dl Total Bilirubin (0.2-1.0) mg/dl AST (13-39) U/L ALT (7-52) U/L Alkaline Phosphatase (34-104) U/L Troponin I High Sens (0-14) pg/ml C-Reactive Protein < 0.50 (0-0.5) mg/dl Total Protein (6.0-8.3) gm/dl Albumin (3.4-5.0) gm/dl Globulin (2.5-4.0) gm/dl Albumin/Globulin Ratio (0.9-2) HCG, Qual Negative (Negative) SARS-CoV-2, RNA, NAAT (NEGATIVE) Blood Type Antibody Screen 11/16/21 11/16/21 11/16/21 Range/Units 12:15 12:32 13:50 WBC (4.8-10.8) K/ul RBC (3.93-5.22) M/uL Hgb (12.0-16.0) g/dl POC Hgb 15.6 (12.0-16.0) g/dl Hct (34.1-44.9) % POC Hct 46 (37-47) % MCV (80.0-100.0) fL MCH (25.0-34.0) pg MCHC (32.0-36.0) g/dL RDW Std Deviation (36.4-46.3) fL RDW Coeff of Adal (11.5-14.5) % Plt Count (130-400) K/uL MPV (9.4-12.3) fL Immature Gran % (Auto) % Neut % (Auto) % Lymph % (Auto) % [place] % (Auto) % Eos % (Auto) % Baso % (Auto) % Neut # (Auto) (1.4-6.5) K/uL Lymph # (Auto) (1.2-3.4) K/uL [place] # (Auto) (0.24-0.82) K/uL Eos # (Auto) (0-0.50) K/uL Baso # (Auto) (0-0.2) K/uL Immature Gran # (Auto) (0.00-0.02) K/uL ESR (0-20) mm/hr PT (9.0-12.0) Seconds INR (0.9-1.1) APTT (21.0-31.0) Seconds PTT Ratio POC Sodium 140 (135-144) mmol/L Sodium (136-145) mmol/L POC Potassium 3.9 (3.3-5.0) mmol/L Potassium (3.5-5.1) mmol/L POC Chloride 105 (101-112) mmol/L Chloride (98-107) mmol/L Carbon Dioxide (21-32) mmol/L POC Total CO2 21 L (24-31) mmol/L Anion Gap (3-11) POC Anion Gap 19.0 (16-25) mmol/L POC BUN 9 (7-18) mg/dl BUN (6-23) mg/dl Creatinine (0.6-1.2) mg/dl POC Creatinine 0.8 (0.6-1.3) mg/dl Est Cr Clr Drug Dosing ml/min Est GFR ( Amer) ml/min Est GFR (Non-Af Amer) ml/min BUN/Creatinine Ratio (10-20) Glucose (70-99(Fasting)) mg/dl POC Glucose (other) 80 (70-99) mg/dl Calcium (8.5-10.1) mg/dl POC Ioniz Calcium [place] 1.23 (1.12-1.32) mmol/l Magnesium (1.7-2.4) mg/dl Total Bilirubin (0.2-1.0) mg/dl AST (13-39) U/L ALT (7-52) U/L Alkaline Phosphatase (34-104) U/L Troponin I High Sens (0-14) pg/ml C-Reactive Protein (0-0.5) mg/dl Total Protein (6.0-8.3) gm/dl Albumin (3.4-5.0) gm/dl Globulin (2.5-4.0) gm/dl Albumin/Globulin Ratio (0.9-2) HCG, Qual (Negative) SARS-CoV-2, RNA, NAAT NEGATIVE (NEGATIVE) Blood Type A Positive Antibody Screen NEGATIVE Imaging Data Radiologist's Impression: Head CT 11/16/21 12:[address] NONCONTRAST, HEAD AND NECK CTA CT DOSE: 1046.33 mGy.cm HISTORY: ataxia/right arm/leg weakness TECHNIQUE: Multiaxial CT images of the head were performed without the use of intravenous contrast. Multiaxial CT images of the head and neck were performed following the intravenous administration of 120 cc of Optiray 300 to evaluate the major arterial structures. Maximal intensity projection images were also obtained. Automated exposure control was utilized for this study. A dose lowering technique was utilized adhering to the principles of ALARA. Comparison: None. Findings: Noncontrast head CT: Mild mucosal thickening within the right sphenoid sinus. The mastoid air cells are clear. Mild motion artifact. The ventricles and sulci are within normal limits. There is no mass, hematoma, midline shift, acute infarct. The calvarium and skull base are intact. Head CTA: Visualized intracranial internal carotid arteries, distal vertebral arteries, and basilar artery are widely patent. There is no significant stenosis, occlusion, or aneurysm seen within the bilateral ACAs, MCAs, or lode miner blasting. The major dural venous sinuses are patent. Neck CTA: The aortic arch and proximal great vessels are widely patent. There is no significant stenosis, occlusion, or dissection identified within the bilateral common carotid, internal carotid, or vertebral arteries. IMPRESSION: 1. No significant stenosis, occlusion, or aneurysm within the [place] of [place]. 2. No significant stenosis, occlusion, or dissection identified within the carotid or vertebral arteries. 3. No acute intracranial abnormality. ACT 112: Negative or not required by law. Electronically signed by: Kevyn Mejía M.D. 11/16/2021 12:52 PM Head CTA 11/16/21 12:[address] NONCONTRAST, HEAD AND NECK CTA CT DOSE: 1046.33 mGy.cm HISTORY: ataxia/right arm/leg weakness TECHNIQUE: Multiaxial CT images of the head were performed without the use of intravenous contrast. Multiaxial CT images of the head and neck were performed following the intravenous administration of 120 cc of Optiray 300 to evaluate the major arterial structures. Maximal intensity projection images were also obtained. Automated exposure control was utilized for this study. A dose lowering technique was utilized adhering to the principles of ALARA. Comparison: None. Findings: Noncontrast head CT: Mild mucosal thickening within the right sphenoid sinus. The mastoid air cells are clear. Mild motion artifact. The ventricles and sulci are within normal limits. There is no mass, hematoma, midline shift, acute infarct. The calvarium and skull base are intact. Head CTA: Visualized intracranial internal carotid arteries, distal vertebral arteries, and basilar artery are widely patent. There is no significant stenosis, occlusion, or aneurysm seen within the bilateral ACAs, MCAs, or lode miner blasting. The major dural venous sinuses are patent. Neck CTA: The aortic arch and proximal great vessels are widely patent. There is no significant stenosis, occlusion, or dissection identified within the bilateral common carotid, internal carotid, or vertebral arteries. IMPRESSION: 1. No significant stenosis, occlusion, or aneurysm within the [place] of [place]. 2. No significant stenosis, occlusion, or dissection identified within the carotid or vertebral arteries. 3. No acute intracranial abnormality. ACT 112: Negative or not required by law. Electronically signed by: Kevyn Mejía M.D. 11/16/2021 12:52 PM Neck CTA 11/16/21 12:[address] NONCONTRAST, HEAD AND NECK CTA CT DOSE: 1046.33 mGy.cm HISTORY: ataxia/right arm/leg weakness TECHNIQUE: Multiaxial CT images of the head were performed without the use of intravenous contrast. Multiaxial CT images of the head and neck were performed following the intravenous administration of 120 cc of Optiray 300 to evaluate the major arterial structures. Maximal intensity projection images were also obtained. Automated exposure control was utilized for this study. A dose lowering technique was utilized adhering to the principles of ALARA. Comparison: None. Findings: Noncontrast head CT: Mild mucosal thickening within the right sphenoid sinus. The mastoid air cells are clear. Mild motion artifact. The ventricles and sulci are within normal limits. There is no mass, hematoma, midline shift, acute infar ct. The calvarium and skull base are intact. Head CTA: Visualized intracranial internal carotid arteries, distal vertebral arteries, and basilar artery are widely patent. There is no significant stenosis, occlusion, or aneurysm seen within the bilateral ACAs, MCAs, or lode miner blasting. The major dural venous sinuses are patent. Neck CTA: The aortic arch and proximal great vessels are widely patent. There is no significant stenosis, occlusion, or dissection identified within the bilateral common carotid, internal carotid, or vertebral arteries. IMPRESSION: 1. No significant stenosis, occlusion, or aneurysm within the [place] of [place]. 2. No significant stenosis, occlusion, or dissection identified within the carotid or vertebral arteries. 3. No acute intracranial abnormality. ACT 112: Negative or not required by law. Electronically signed by: Kevyn Mejía M.D. 11/16/2021 12:52 PM Brain MRI 11/16/21 13:19 MR brain wo/w con CLINICAL HISTORY: right weak/ataxia eval for stroke TECHNIQUE: Multiplanar and multisequence MR images of the brain were obtained prior to and following administration of gadolinium contrast. Comparison: None available at the time of this dictation. FINDINGS: No abnormal restricted diffusion is identified. The white matter is unrema rkable. The ventricular system is normal in appearance. No mass or abnormal enhancement is seen. There is no mass effect or midline shift. There is no evidence of acute intraparenchymal hemorrhage. No extra axial fluid collections are seen. The corpus callosum, pituitary gland, and cerebellar tonsils appear grossly unremarkable. Flow voids of the major intracranial arterial vessels are identified. The imaged portions of the paranasal sinuses, mastoid air cells, and orbits are unremarkable. IMPRESSION: No acute abnormalities. ACT 112: Negative or not required by law. Electronically signed by: Bhupinder Schwartz M.D. 11/16/2021 6:05 PM MDM Narrative I did evaluate the patient as noted above. The patient is presenting with acute disequilibrium and dysarthria. She is ataxic on exam and has appreciable weakness in the right arm and leg. I did immediately call a stroke alert. I did discuss case with Dr. Khan of [facility] stroke neurology. IV access was established. I did order a stat CT of the head and CT angiogram of the head and neck. I did review the images myself as well as the radiology report as described above. I did place an order for continuous cardiac monitoring. The monitor showed normal sinus rhythm at a rate of 60 bpm. I did order and personally review the patient's 12-lead EKG as described above. There is no evidence of dysrhythmia or acute ischemia. She does have some mild bradycardia or a rate of 56. The patient was evaluated by Dr. Khan via telestroke. I did order and review the patient's blood work as noted in the electronic medical record. CBC is unremarkable without leukocytosis or anemia. CMP is unremarkable other than a calcium of 10.4. Serum test is negative. After evaluation of the patient via telestroke Dr. Khan did recommend treatment with TNK. Contraindications were reviewed with the patient and she did not have any. She did have hemorrhoidectomy over a month ago and reports no rectal bleeding. He did review risks and benefits with the patient. I also reviewed risks and benefits with the patient and she understands that it is not certain that she is having a stroke and she may be having a stroke mimic. Dr. Khan did discuss potential other diagnoses. She also understands that there is a risk of bleeding in the body including the brain and that bleeding in the brain can lead to or other debilitating symptoms. She also understood that the medication would give her a better chance that improvement of her symptoms in 90 days but also that she may improve on her own without the medication. After discussion of risks and benefits with the patient, Dr. Khan and her mother the patient did give consent for IV tenecteplase. She was administered IV TNK. I did discuss the case with the field operations farm manager on-call. I also spoke to the hospitalist on-call. I did reevaluate the patient at 1436 and her symptoms are now completely resolved. She has no slurring of her speech. She has no weakness to the right side. She does not feel any dizziness. I did order an MRI of the brain which is currently pending. She was admitted to the ICU. I did relay Dr. Khan's recommendations to the hospitalist team. Impression & Plan Acute ataxia, Dysarthria, Acute right-sided weakness Discharge Plan Visit Data Chief Complaint: Head Pain Stated Complaint: TINGLING IN HEAD, CT SCAN REF BY [facility] ED Provider: Wilman García Discharge Problem: Acute ataxia, Dysarthria, Acute right-sided weakness Patient Disposition: Admitted As Inpatient Discharge Instructions Interventions: ED Discharge Assessment Last Done: 11/16/21 16:20
[2021-11-16] MEDS ORDERED: OPTIRAY 300 500mL IV ONE (12:23)
[2021-11-16 12:24] LABS: Basophils # (auto) 0.05 K/uL (0-0.2); Basophils % (auto) 0.7 %; Eosinophils % (auto) 1.3 %; Hematocrit (blood only) 44.4 % (34.1-44.9); Hemoglobin 15.1 g/dl (12.0-16.0); Immature Granulocytes # (auto) 0.01 K/uL (0.00-0.02); Immature Granulocytes % (auto) 0.1 %; Lymphocytes % (auto) 28.2 %; Mean Corpuscular Hemoglobin 30.5 pg (25.0-34.0); Mean Corpuscular Volume 89.7 fL (80.0-100.0); Mean Platelet Volume 9.5 fL (9.4-12.3); Monocytes # (auto) 0.69 K/uL (0.24-0.82); Monocytes % (auto) 9.3 %; Neutrophils % (auto) 60.4 %; Platelet Count 278 K/uL (130-400); RDW Coefficient of Variation 12.5 % (11.5-14.5); RDW Standard Deviation 41.3 fL (36.4-46.3); Red Blood Count 4.95 M/uL (3.93-5.22); White Blood Count 7.45 K/ul (4.8-10.8)
[2021-11-16 12:35] LABS: INR 1.1 (0.9-1.1); Partial Thromboplastin Time 27.2 Seconds (21.0-31.0); Prothrombin Time 11.4 Seconds (9.0-12.0)
[2021-11-16 12:44] LABS: Pregnancy Test, Serum Negative (Negative)
[2021-11-16 12:45] LABS: Albumin Globulin Ratio 1.6 (0.9-2); Albumin Level 4.9 gm/dl (3.4-5.0); BUN Creatinine Ratio 11.7 (10-20); Calcium 10.4 mg/dl (8.5-10.1); Creatinine Clr Calc Pharmacy 95.3 ml/min; Est GFR (African American) 119.2 ml/min; Est GFR (Non-African American) 102.9 ml/min; Globulin 3.1 gm/dl (2.5-4.0); Magnesium 1.9 mg/dl (1.7-2.4); Potassium 4.1 mmol/L (3.5-5.1)
[2021-11-16 12:49] LABS: iSTAT Creatinine 0.8 mg/dl (0.6-1.3); iSTAT Hemoglobin 15.6 g/dl (12.0-16.0); iSTAT Ionized Calcium 1.23 mmol/l (1.12-1.32); iSTAT Potassium 3.9 mmol/L (3.3-5.0)
[2021-11-16 12:50] LABS: Troponin I High Sensitivity 3.1 pg/ml (0-14)
--- NOTE | 2021-11-16 12:54 | CT Scan Report ---
HEAD CT NONCONTRAST, HEAD AND NECK CTA CT DOSE: 1046.33 mGy.cm HISTORY: ataxia/right arm/leg weakness TECHNIQUE: Multiaxial CT images of the head were performed without the use of intravenous contrast. M ultiaxial CT images of the head and neck were performed following the intravenous administration of 1 20 cc of Optiray 300 to evaluate the major arterial structures. Maximal intensity projection images w ere also obtained. Automated exposure control was utilized for this study. A dose lowering technique was utilized adhering to the principles of ALARA. Comparison: None. Findings: Noncontrast head CT: Mild mucosal thickening within the right sphenoid sinus. The mastoid air cells a re clear. Mild motion artifact. The ventricles and sulci are within normal limits. There is no mass, hematoma, midline shift, acute infarct. The calvarium and skull base are intact. Head CTA: Visualized intracranial internal carotid arteries, distal vertebral arteries, and basilar a rtery are widely patent. There is no significant stenosis, occlusion, or aneurysm seen within the [place] a[place] ACAs, MCAs, or dam operator. The major dural venous sinuses are patent. Neck CTA: The aortic arch and proximal great vessels are widely patent. There is no significant ria nosis, occlusion, or dissection identified within the bilateral common carotid, internal carotid, or vertebral arteries. IMPRESSION: 1. No significant stenosis, occlusion, or aneurysm within the [place]. 2. No significant stenosis, occlusion, or dissection identified within the carotid or vertebral arter ies. 3. No acute intracranial abnormality. ACT 112: Negative or not required by law. Electronically signed by: Kevyn Mejía M.D. 11/16/2021 12:52 PM
--- NOTE | 2021-11-16 12:54 | CT Scan Report ---
HEAD CT NONCONTRAST, HEAD AND NECK CTA CT DOSE: 1046.33 mGy.cm HISTORY: ataxia/right arm/leg weakness TECHNIQUE: Multiaxial CT images of the head were performed without the use of intravenous contrast. M ultiaxial CT images of the head and neck were performed following the intravenous administration of 1 20 cc of Optiray 300 to evaluate the major arterial structures. Maximal intensity projection images w ere also obtained. Automated exposure control was utilized for this study. A dose lowering technique was utilized adhering to the principles of ALARA. Comparison: None. Findings: Noncontrast head CT: Mild mucosal thickening within the right sphenoid sinus. The mastoid air cells a re clear. Mild motion artifact. The ventricles and sulci are within normal limits. There is no mass, hematoma, midline shift, acute infarct. The calvarium and skull base are intact. Head CTA: Visualized intracranial internal carotid arteries, distal vertebral arteries, and basilar a rtery are widely patent. 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 The major dural venous sinuses are patent. Neck CTA: The aortic arch and proximal great vessels are widely patent. There is no significant ria nosis, occlusion, or dissection identified within the bilateral common carotid, internal carotid, or vertebral arteries. IMPRESSION: 1. No significant stenosis, occlusion, or aneurysm within the [place]. 2. No significant stenosis, occlusion, or dissection identified within the carotid or vertebral arter ies. 3. No acute intracranial abnormality. ACT 112: Negative or not required by law. Electronically signed by: Kevyn Mejía M.D. 11/16/2021 12:52 PM
--- NOTE | 2021-11-16 12:54 | CT Scan Report ---
HEAD CT NONCONTRAST, HEAD AND NECK CTA CT DOSE: 1046.33 mGy.cm HISTORY: ataxia/right arm/leg weakness TECHNIQUE: Multiaxial CT images of the head were performed without the use of intravenous contrast. M ultiaxial CT images of the head and neck were performed following the intravenous administration of 1 20 cc of Optiray 300 to evaluate the major arterial structures. Maximal intensity projection images w ere also obtained. Automated exposure control was utilized for this study. A dose lowering technique was utilized adhering to the principles of ALARA. Comparison: None. Findings: Noncontrast head CT: Mild mucosal thickening within the right sphenoid sinus. The mastoid air cells a re clear. Mild motion artifact. The ventricles and sulci are within normal limits. There is no mass, hematoma, midline shift, acute infarct. The calvarium and skull base are intact. Head CTA: Visualized intracranial internal carotid arteries, distal vertebral arteries, and basilar a rtery are widely patent. There is no significant stenosis, occlusion, or aneurysm seen within the h[place] ateral ACAs, MCAs, or photography colorist. The major dural venous sinuses are patent. Neck CTA: The aortic arch and proximal great vessels are widely patent. There is no significant ria nosis, occlusion, or dissection identified within the bilateral common carotid, internal carotid, or vertebral arteries. IMPRESSION: 1. No significant stenosis, occlusion, or aneurysm within the [place]. 2. No significant stenosis, occlusion, or dissection identified within the carotid or vertebral arter ies. 3. No acute intracranial abnormality. ACT 112: Negative or not required by law. Electronically signed by: Kevyn Mejía M.D. 11/16/2021 12:52 PM
[2021-11-16] MEDS ORDERED: SODIUM CHLORIDE 0.9% 10ML FLUSH IV STA (13:12)
[2021-11-16] MEDS ORDERED: STAT IV STA (13:12)
[2021-11-16] MEDS ORDERED: No Aspirin within 24hrs of THROMBOLYTIC-Stroke PO SCH (13:15)
[2021-11-16] MEDS ORDERED: TENECTEPLASE 16 MG in SYRINGE 0 ML IV ONE (13:17)
[2021-11-16] MEDS ORDERED: TENECTEPLASE 15 MG in SYRINGE 0 ML IV ONE (13:30)
--- NOTE | 2021-11-16 13:55 | History & Physical Report ---
Date of Service November 16, 2021 Assessment & Plan (1) Stroke-like symptoms: Plan: Patient is 31 y/o F with PMH head injury, seizure disorder, psoriatic arthritis, depression, anxiety presented to ER with c/o paresthesias to head started this morning. Paresthesias to entire head that radiated down her body ending at her waist, trouble thinking and expressing her thoughts, dizziness. In ER vitals stable. No significant electrolyte abnormality. Negative urine HCG CT Head: no acute intracranial abnormality CTA Head and neck: No significant stenosis, occlusion, or aneurysm within the [place]. No significant stenosis, occlusion, or dissection identified within the carotid or vertebral arteries. No acute intracranial abnormality. In ER was slow to answer questions, had stumbling gait, and right sided weakness. Tele stroke neurologist evaluation in ER. Patient received TNK 4.5hrs after initial symptom onset. During ER course patient has had improvement of symptoms and reports feels back to baseline cognitively and she was able to ambulate with nurse to bathroom without any gait disturbance. DDX: TIA, CVA, atypical migraine Admit ICU Tox screen pending Lipid, A1c in am MRI brain Echo with bubble study Aspiration precautions PT/OT consult Tele stroke neurologist recommended BP<180/105, ANGELITA, ANCA, ESR, CRP, hypercoagulable workup Patient will need outpatient hypercoagulable workup Neurology consult (2) Psoriatic arthritis: Plan: On and hydroxychloroquine, and Cosentyx every 2 weeks. Last dose Cosentyx 11/15/21 Follows with rheumatology, Dr Sanders (3) Seizure: Plan: History head injury and history seizure disorder with tonic clonic type movements age [age]. Never on medication. No seizure activity since 2009 Monitor (4) ADHD: (5) Anxiety: (6) Depression: Plan: On Adderall, clonazepam, clonidine DVT Prophylaxis SCDs Full Code as per discussion with pt Follows with Dr Munoz for routine care Pt was seen and care coordinated with Dr Hutchison. See addendum History of Present Illness Chief Complaint: paresthesias Primary Care Provider: Rudi Munoz MD Patient is 31 y/o F with PMH head injury, seizure disorder, psoriatic arthritis, depression, anxiety presented to ER with c/o paresthesias to head started this morning. Reports pins and needles sensation to entire head that radiated down her body ending at her waist. Also with trouble speaking and she states had trouble thinking and expressing her thoughts, as well as dizziness. She did not notice any extremity weakness but did have trouble ambulating normally. Her mother denies noting any facial drooping. Symptom onset at 9:00AM. Denies vision changes, syncope, CP, SOB. History hemorrhoidectomy 09/25/21 and had rectal bleeding on 09/30/21. Uses NuvaRing, has not used since 08/2021. Denies h/o DVT/PE or FH DVT/PE. Denies fever/chills, diaphoresis, N/V/D/C, neck pain, palpitations, cough, sore throat, choking, otalgia, rhinorrhea, abdominal pain, extremity edema, rashes, urinary symptoms. In ER found to be slow to answer questions, had stumbling gait, and right sided weakness. Tele stroke neurologist evaluation in ER. Patient received TNK 4.5hrs after initial symptom onset. During ER course patient has had improvement of symptoms and reports feels back to baseline cognitively and she was able to ambulate with nurse to bathroom without any gait disturbance. Allergies Allergy/AdvReac Type Severity Reaction Status Date / Time No Known Allergies Allergy Verified 09/30/21 22:06 Home Medications Medication Instructions Recorded Confirmed Type clonazepam 0.5 mg tablet 1.5 mg PO DAILY 11/23/17 11/16/21 History dextroamphetamine-amphetamine 15 15 mg PO QAM 11/23/17 11/16/21 History mg tablet NuvaRing 0.12 mg-0.015 mg/24 hr 1 vag ring vaginal Q4WK #3 ea 03/30/21 11/16/21 Rx vaginal (etonogestrel-ethinyl estradiol) clonazepam 0.5 mg tablet 1 mg PO PM 11/16/21 11/16/21 History clonidine HCl 0.1 mg tablet 0.15 mg PO HS 11/16/21 11/16/21 History cyanocobalamin (vitamin B-12) 500 500 mcg PO DAILY 11/16/21 11/16/21 History mcg tablet (Vitamin B-12) dextroamphetamine-amphetamine 10 10 mg PO QPM 11/16/21 11/16/21 History mg tablet hydroxychloroquine 200 mg tablet 200 mg PO HS 11/16/21 11/16/21 History metoclopramide HCl 5 mg tablet 5 mg PO TIDM 11/16/21 11/16/21 History multivitamin 1 tab PO DAILY 11/16/21 11/16/21 History secukinumab 150 mg/mL subcutaneous 150 mg subcut UD 11/16/21 11/16/21 History pen injector (Cosentyx Pen 300 mg/2 Pens () Past Med/Surg History Medical History (Updated 11/16/21 @ 19:59 by Wilman García MD) ADHD Anxiety Depression Encounter for pre-operative examination Encounter for surveillance of vaginal ring hormonal contraceptive device H/O chlamydia infection (2017) History of ectopic (2013) Hx of peptic ulcer Migraine hx Psoriatic arthritis Scoliosis 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 no seizures since 2009. Surgical History History of esophagogastroduodenoscopy (EGD) S/P dilation and curettage D&E S/P laparoscopy (2013) Excision of ectopic and Left salpingectomy Bry[place] teeth removed Family History (Updated 11/16/21 @ 15:17 by Shurti Hinson PA-C) Father Cardiac pacemaker Grandmother (Paternal) Thyroid disease Other Coronary heart disease No family history of adverse response to anesthesia Stroke Social History (Updated 11/16/21 @ 14:46 by Shruti Hinson PA-C) Smoking Status: Current every day smoker Tobacco Type: Cigarettes packs per day: 1.5; Years Smoked: 19; Second Hand Exposure: Yes; Hx Alcohol Use: Yes Alcohol type: beer and wine Alcohol Intake Frequency Comme nt: >5 drinks on weekends Hx Substance Use: No Preferred Language: Moroccan Communication Ability: Effective Clinical Resource Coordinator Required: No Beliefs That Will Affect Care: None Current Living Situation: Family Current Living Situation Comment: two children Feels Safe at Home: Yes Assistive Devices: Glasses Review of Systems Review of Systems: All systems reviewed & are unremarkable except as noted in HPI & below Physical Exam Physical Exam: General: no distress, WDWN Head: normocephalic, atraumatic Eyes: PERRL, EOM's intact, no nystagmus, conjunctiva non-injected, anicteric ENT: normal inspection external ears, nose, mucous membranes moist Neck: supple, trachea midline Lungs: clear, no respiratory distress, no wheezing/rhonchi/rales CV: RRR, no murmur, no JVD, no pretibial edema Abd: normal BS, soft, non-tender Ext: no cyanosis, no calf tenderness Neuro: A&O x 3, normal affect. face is strong and symmetric, hearing grossly intact, soft palate elevates symmetrically, no dysarthria, shoulder shrug intact, tongue is midline, normal movement, no fasciculations. Muscle tone normal. Strength 5/5 throughout Skin: warm, dry Results & Data Results & Data ([facility]) Vital Signs (Past 12 Hours) Vital Signs Temp Pulse Pulse Resp BP BP Pulse Ox 11/16/21 13:00 81 21 137/85 98 11/16/21 12:32 94 H 22 152/92 H 97 11/16/21 11:37 36.8 C 72 18 130/94 95 O2 Del Method 11/16/21 13:00 Room Air 11/16/21 12:32 Room Air 11/16/21 11:37 Room Air Laboratory Results Short CBC 11/16/21 Range/Units 12:10 WBC 7.45 (4.8-10.8) K/ul Hgb 15.1 (12.0-16.0) g/dl Hct 44.4 (34.1-44.9) % Plt Count 278 (130-400) K/uL BMP 11/16/21 12:10 Sodium 138 Potassium 4.1 Chloride 104 Carbon Dioxide 24 BUN 9 Creatinine 0.77 Glucose 77 Calcium 10.4 H Liver Function 11/16/21 Range/Units 12:10 Total Bilirubin 1.0 (0.2-1.0) mg/dl AST 19 (13-39) U/L ALT 15 (7-52) U/L Alkaline Phosphatase 48 (34-104) U/L Albumin 4.9 (3.4-5.0) gm/dl Diagnostic Findings Head CT 11/16/21 12:[address] NONCONTRAST, HEAD AND NECK CTA CT DOSE: 1046.33 mGy.cm HISTORY: ataxia/right arm/leg weakness TECHNIQUE: Multiaxial CT images of the head were performed without the use of intravenous contrast. Multiaxial CT images of the head and neck were performed following the intravenous administration of 120 cc of Optiray 300 to evaluate the major arterial structures. Maximal intensity projection images were also obtained. Automated exposure control was utilized for this study. A dose lowering technique was utilized adhering to the principles of ALARA. Comparison: None. Findings: Noncontrast head CT: Mild mucosal thickening within the right sphenoid sinus. The mastoid air cells are clear. Mild motion artifact. The ventricles and sulci are within normal limits. There is no mass, hematoma, midline shift, acute infarct. The calvarium and skull base are intact. Head CTA: Visualized intracranial internal carotid arteries, distal vertebral arteries, and basilar artery are widely patent. There is no significant stenosis, occlusion, or aneurysm seen within the bilateral ACAs, MCAs, or drying machine operator package yarns. The major dural venous sinuses are patent. Neck CTA: The aortic arch and proximal great vessels are widely patent. There is no significant stenosis, occlusion, or dissection identified within the bilateral common carotid, internal carotid, or vertebral arteries. IMPRESSION: 1. No significant stenosis, occlusion, or aneurysm within the [place]. 2. No significant stenosis, occlusion, or dissection identified within the carotid or vertebral arteries. 3. No acute intracranial abnormality. ACT 112: Negative or not required by law. Electronically signed by: Kevyn Mejía M.D. 11/16/2021 12:52 PM Head CTA 11/16/21 12:[address] NONCONTRAST, HEAD AND NECK CTA CT DOSE: 1046.33 mGy.cm HISTORY: ataxia/right arm/leg weakness TECHNIQUE: Multiaxial CT images of the head were performed without the use of intravenous contrast. Multiaxial CT images of the head and neck were performed following the intravenous administration of 120 cc of Optiray 300 to evaluate the major arterial structures. Maximal intensity projection images were also obtained. Automated exposure control was utilized for this study. A dose l owering technique was utilized adhering to the principles of ALARA. Comparison: None. Findings: Noncontrast head CT: Mild mucosal thickening within the right sphenoid sinus. The mastoid air cells are clear. Mild motion artifact. The ventricles and sulci are within normal limits. There is no mass, hematoma, midline shift, acute infarct. The calvarium and skull base are intact. Head CTA: Visualized intracranial internal carotid arteries, distal vertebral arteries, and basilar artery are widely patent. There is no significant stenosis, occlusion, or aneurysm seen within the bilateral ACAs, MCAs, or drying machine operator package yarns. The major dural venous sinuses are patent. Neck CTA: The aortic arch and proximal great vessels are widely patent. There is no significant stenosis, occlusion, or dissection identified within the bilateral common carotid, internal carotid, or vertebral arteries. IMPRESSION: 1. No significant stenosis, occlusion, or aneurysm within the [place]. 2. No significant stenosis, occlusion, or dissection identified within the carotid or vertebral arteries. 3. No acute intracranial abnormality. ACT 112: Negative or not required by law. Electronically signed by: Kevyn Mejía M.D. 11/16/2021 12:52 PM Neck CTA 11/16/21 12:[address] NONCONTRAST, HEAD AND NECK CTA CT DOSE: 1046.33 mGy.cm HISTORY: ataxia/right arm/leg weakness TECHNIQUE: Multiaxial CT images of the head were performed without the use of intravenous contrast. Multiaxial CT images of the head and neck were performed following the intravenous administration of 120 cc of Optiray 300 to evaluate the major arterial structures. Maximal intensity projection images were also obtained. Automated exposure control was utilized for this study. A dose low ering technique was utilized adhering to the principles of ALARA. Comparison: None. Findings: Noncontrast head CT: Mild mucosal thickening within the right sphenoid sinus. The mastoid air cells are clear. Mild motion artifact. The ventricles and sulci are within normal limits. There is no mass, hematoma, midline shift, acute infarct. The calvarium and skull base are intact. Head CTA: Visualized intracranial internal carotid arteries, distal vertebral arteries, and basilar artery are widely patent. There is no significant stenosis, occlusion, or aneurysm seen within the bilateral ACAs, MCAs, or drying machine operator package yarns. The major dural venous sinuses are patent. Neck CTA: The aortic arch and proximal great vessels are widely patent. There is no significant stenosis, occlusion, or dissection identified within the bilateral common carotid, internal carotid, or vertebral arteries. IMPRESSION: 1. No significant stenosis, occlusion, or aneurysm within the [place]. 2. No significant stenosis, occlusion, or dissection identified within the carotid or vertebral arteries. 3. No acute intracranial abnormality. ACT 112: Negative or not required by law. Electronically signed by: Kevyn Mejía M.D. 11/16/2021 12:52 PM Supervising Physician Co-Signing Physician Notes 31-year-old lady with current history of tobacco abuse, seizure disorder [last 1 in 2009, not on seizure medication], psoriatic arthritis, depression, anxiety presented to the ED 11/16 with complaint of paresthesia to head started this morning that radiated down her body up to the level of waist and was found to have right-sided weakness and slurring of his speech in the ED. Significant family history of stroke in grandmother and AL in father at age 45. No family history of blood clot. No personal history of blood clot. Patient received TNKase with guidance from telestroke neurology. Patient improvement in her slurring of speech and right-sided weakness at bedside exam after the medication. Patient hemodynamically stable and reports feeling better. Admitting CT head/CTA head and neck reviewed, no acute findings. Labs reviewed and fairly WNL. test pending. Close monitoring in ICU, echo, lipid/A1c, follow-up MRI brain, fall precaution, coagulopathy study as an outpatient, neurology consult. No aspirin or Lovenox within 24 hours of TNKase use. Maintain blood pressure less than 185/105 mmHg. Smoking cessation/cessation of alcohol consumption advised. Upon examination: GENERAL: Alert and oriented x3. NAD, on RA. HEENT: No pallor, no icterus. Pupils equal, round and reactive to light. Oral mucosa moist. NECK: No JVD, no neck masses. HEART: S1 and S2 heard. Regular rate and rhythm. No murmur, no gallop. RESPIRATORY SYSTEM: Normal AP diameter. No accessory muscle use. No wheezing, no crackles. ABDOMEN: Soft, bowel sounds present, nontender, no distention. CENTRAL NERVOUS SYSTEM: No facial droop. Speech is clear. Obeys simple commands. Moves extremities. EXTREMITIES: No edema, no erythema seen. I have seen and examined the patient and have discussed the case with the provider above. I agree with the assessment and plan as stated.
[2021-11-16 14:49] LABS: Amphetamines+Metham, Urine Neg (Neg); Barbiturates, Urine Neg (Neg); Benzodiazepine, Urine Neg (Neg); Cocaine, Urine Neg (Neg); MDMA (Ecstacy), Urine Neg (Neg); Methadone, Urine Neg (Neg); Opiate, Urine Neg (Neg); Phencyclidine, Urine Neg (Neg)
--- NOTE | 2021-11-16 15:35 | Critical Care Consultation ---
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 She is status post tPA administration. Recommendations: 1. Post TNKase administration: We will observe in the ICU 24 hours for bleeding complications. Follow-up CT scan in 24 hours. If no bleeding complications are identified, the patient be dismissed out of the ICU. 2. Additional stroke work-up has been ordered by the primary service. Neurology consultation and MRI pending. 3. I will defer decision regarding EEG for potential atypical seizure to neurology. No indication for antiepileptic medications currently. 4. Patient will require PT, OT evaluations post TN K administration. 5. Will monitor blood pressure and ensure it stays within acceptable parameters. Will monitor in ICU 24 hours and then critical care services will sign off. Feel free to contact us if we can be of additional assistance History of Present Illness History of Present Illness Asked by hospitalist to assist in evaluation management this patient status post TNKase administration for possible strokelike symptoms. History is obtained from review of electronic medical record and discussion with patient. Patient is a 31-year-old female with a remote history of seizures, possibly attributed to chronic hyponatremia, who presented to the emergency room today with head pressure and paresthesias. The patient reported paresthesias and a sweater like distribution of her torso and also had some dysphagia and difficulty with cognition. She apparently had some gait instability as well. She was brought to the emergency room and evaluated as part of a stroke alert. Telestroke consultation with neurology at [place] reportedly recommended TNKase administration although I do not have that report available to review. The patient received medication. Her symptoms have now resolved completely and she feels neurologically back to normal with the exception of some persistent head pressure. Patient has not had seizures in over 10 years. No family history of clotting disorders or early stroke. Allergies Allergy/AdvReac Type Severity Reaction Status Date / Time No Known Allergies Allergy Verified 09/30/21 22:06 Home Medications Medication Instructions Recorded Confirmed Type clonazepam 0.5 mg tablet 1.5 mg PO DAILY 11/23/17 11/16/21 History dextroamphetamine-amphetamine 15 15 mg PO QAM 11/23/17 11/16/21 History mg tablet NuvaRing 0.12 mg-0.015 mg/24 hr 1 vag ring vaginal Q4WK #3 ea 03/30/21 11/16/21 Rx vaginal (etonogestrel-ethinyl estradiol) clonazepam 0.5 mg tablet 1 mg PO PM 11/16/21 11/16/21 History clonidine HCl 0.1 mg tablet 0.15 mg PO HS 11/16/21 11/16/21 History cyanocobalamin (vitamin B-12) 500 500 mcg PO DAILY 11/16/21 11/16/21 History mcg tablet (Vitamin B-12) dextroamphetamine-amphetamine 10 10 mg PO QPM 11/16/21 11/16/21 History mg tablet hydroxychloroquine 200 mg tablet 200 mg PO HS 11/16/21 11/16/21 History metoclopramide HCl 5 mg tablet 5 mg PO TIDM 11/16/21 11/16/21 History multivitamin 1 tab PO DAILY 11/16/21 11/16/21 History secukinumab 150 mg/mL subcutaneous 150 mg subcut UD 11/16/21 11/16/21 History pen injector (Cosentyx Pen 300 mg/2 Pens () Patient History Medical History (Updated 11/16/21 @ 15:32 by Elmer Tyler MD) ADHD Anxiety Depression Encounter for pre-operative examination Encounter for surveillance of vaginal ring hormonal contraceptive device H/O chlamydia infection (2017) History of ectopic (2013) Hx of peptic ulcer Migraine hx Psoriatic arthritis Scoliosis 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 no seizures since 2009. Surgical History History of esophagogastroduodenoscopy (EGD) S/P dilation and curettage D&E S/P laparoscopy (2013) Excision of ectopic and Left salpingectomy Egnar teeth removed Family History (Updated 11/16/21 @ 15:17 by Shruti Hinson PA-C) Father Cardiac pacemaker Grandmother (Paternal) Thyroid disease Other Coronary heart disease No family history of adverse response to anesthesia Stroke Social History (Updated 11/16/21 @ 14:46 by Shruti Hinson PA-C) Smoking Status: Current some day smoker Tobacco Type: Cigarettes packs per day: 1.5; Years Smoked: 19; Second Hand Exposure: Yes (as a child); Hx Alcohol Use: Yes Alcohol type: beer and wine Alcohol Intake Frequency Comment: >5 drinks on weekends Hx Substance Use: Yes (used marijuana once 2 months ago) Preferred Language: American Communication Ability: Effective Firer Automatic Stoker Required: No Beliefs That Will Affect Care: None Current Living Situation: Family Current Living Situation Comment: two children Feels Safe at Home: Yes Assistive Devices: Contacts and Glasses Review of Systems Review of Systems: All systems reviewed & are unremarkable except as noted in Subjective Physical Exam Constitutional: WD/WN, vitals as above Neck: trachea midline, no thyromegaly Respiratory: normal respiratory effort, lungs clear to auscultation Cardiovascular: RRR, no murmur, no edema Gastrointestinal (Abdomen): normal bowel sounds, soft, nontender, no hepatosplenomegaly Musculoskeletal: Extremities: extremities normal to inspection Skin: no rashes, warm and dry Neurologic: Nonfocal exam Lymphatic: no cervical lymphadenopathy Results & Data Results & Data ([facility]) Vital Signs (Past 12 Hours) Vital Signs Temp Pulse Pulse Resp BP BP Pulse Ox 11/16/21 15:15 60 20 111/77 99 11/16/21 15:00 68 18 127/87 99 11/16/21 14:30 70 18 129/89 98 11/16/21 14:15 68 20 123/80 99 11/16/21 14:00 36.7 C 66 18 147/94 H 99 11/16/21 13:30 70 22 115/70 100 11/16/21 13:45 69 20 118/78 99 11/16/21 13:19 68 22 127/75 99 11/16/21 13:00 81 21 137/85 98 11/16/21 12:32 94 H 22 152/92 H 97 11/16/21 11:37 36.8 C 72 18 130/94 95 O2 Del Method 11/16/21 15:15 Room Air 11/16/21 15:00 Room Air 11/16/21 14:30 Room Air 11/16/21 14:15 Room Air 11/16/21 14:00 Room Air 11/16/21 13:30 Room Air 11/16/21 13:45 Room Air 11/16/21 13:19 Room Air 11/16/21 13:00 Room Air 11/16/21 12:32 Room Air 11/16/21 11:37 Room Air Critical Care Results & Data Vital Signs (Past 12 Hours) Vital Signs Temp Pulse Pulse Resp BP BP Pulse Ox 11/16/21 15:15 60 20 111/77 99 11/16/21 15:00 68 18 127/87 99 11/16/21 14:30 70 18 129/89 98 11/16/21 14:15 68 20 123/80 99 11/16/21 14:00 36.7 C 66 18 147/94 H 99 11/16/21 13:30 70 22 115/70 100 11/16/21 13:45 69 20 118/78 99 11/16/21 13:19 68 22 127/75 99 11/16/21 13:00 81 21 137/85 98 11/16/21 12:32 94 H 22 152/92 H 97 11/16/21 11:37 36.8 C 72 18 130/94 95 O2 Del Method 11/16/21 15:15 Room Air 11/16/21 15:00 Room Air 11/16/21 14:30 Room Air 11/16/21 14:15 Room Air 11/16/21 14:00 Room Air 11/16/21 13:30 Room Air 11/16/21 13:45 Room Air 11/16/21 13:19 Room Air 11/16/21 13:00 Room Air 11/16/21 12:32 Room Air 11/16/21 11:37 Room Air Lab & Micro Results (Past 24 Hours) RBC 4.95 M/uL (3.93-5.22) 11/16/21 WBC 7.45 K/ul (4.8-10.8) 11/16/21 Hgb 15.1 g/dl (12.0-16.0) 11/16/21 Hct 44.4 % (34.1-44.9) 11/16/21 MCV 89.7 fL (80.0-100.0) 11/16/21 MCH 30.5 pg (25.0-34.0) 11/16/21 MCHC 34.0 g/dL (32.0-36.0) 11/16/21 RDW Standard Deviation 41.3 fL (36.4-46.3) 11/16/21 RDW Coefficient of Variation 12.5 % (11.5-14.5) 11/16/21 Plt Count 278 K/uL (130-400) 11/16/21 MPV 9.5 fL (9.4-12.3) 11/16/21 Neutrophils (%) (Auto) 60.4 % 11/16/21 Lymphocytes (%) (Auto) 28.2 % 11/16/21 Monocytes # (Auto) 0.69 K/uL (0.24-0.82) 11/16/21 Eosinophils # (Auto) 0.10 K/uL (0-0.50) 11/16/21 Immature Granulocyte % (Auto) 0.1 % 11/16/21 Neutrophils # (Auto) 4.50 K/uL (1.4-6.5) 11/16/21 Lymphocytes # (Auto) 2.10 K/uL (1.2-3.4) 11/16/21 Monocytes # (Auto) 0.69 K/uL (0.24-0.82) 11/16/21 Eosinophils # (Auto) 0.10 K/uL (0-0.50) 11/16/21 Basophils # (Auto) 0.05 K/uL (0-0.2) 11/16/21 Immature Granulocyte # (Auto) 0.01 K/uL (0.00-0.02) 2 Na 138 mmol/L (136-145) 11/16/21 K 4.1 mmol/L (3.5-5.1) 11/16/21 Cl 104 mmol/L (98-107) 11/16/21 CO2 24 mmol/L (21-32) 11/16/21 Anion Gap 10 (3-11) 11/16/21 BUN 9 mg/dl (6-23) 11/16/21 Creatinine 0.77 mg/dl (0.6-1.2) 11/16/21 Estimated GFR ( Amer) 119.2 ml/min 11/16/21 Estimated GFR (Non-Af Amer) 102.9 ml/min 11/16/21 BUN/Creatinine Ratio 11.7 (10-20) 11/16/21 Glu 77 mg/dl (70-99(Fasting)) 11/16/21 Ca 10.4 mg/dl (8.5-10.1) H 11/16/21 Total Bilirubin 1.0 mg/dl (0.2-1.0) 11/16/21 AST 19 U/L (13-39) 11/16/21 ALT 15 U/L (7-52) 11/16/21 Alkaline Phosphatase 48 U/L (34-104) 11/16/21 TP 8.0 gm/dl (6.0-8.3) 11/16/21 Albumin 4.9 gm/dl (3.4-5.0) 11/16/21 Globulin 3.1 gm/dl (2.5-4.0) 11/16/21 Albumin/Globulin Ratio 1.6 (0.9-2) 11/16/21 Mg 1.9 mg/dl (1.7-2.4) 11/16/21 12:10 Calcium Level 10.4 mg/dl (8.5-10.1) H 11/16/21 12:10 Prothromb Time International Ratio 1.1 (0.9-1.1) 11/16/21 12:1 0 Diagnostic Findings (Past 24 Hours) Head CT 11/16/21 12:[address] NONCONTRAST, HEAD AND NECK CTA CT DOSE: 1046.33 mGy.cm HISTORY: ataxia/right arm/leg weakness TECHNIQUE: Multiaxial CT images of the head were performed without the use of intravenous contrast. Multiaxial CT images of the head and neck were performed following the intravenous administration of 120 cc of Optiray 300 to evaluate the major arterial structures. Maximal intensity projection images were also obtained. Automated exposure control was utilized for this study. A dose lowering technique was utilized adhering to the principles of ALARA. Comparison: None. Findings: Noncontrast head CT: Mild mucosal thickening within the right sphenoid sinus. The mastoid air cells are clear. Mild motion artifact. The ventricles and sulci are within normal limits. There is no mass, hematoma, midline shift, acute infarct. The calvarium and skull base are intact. Head CTA: Visualized intracranial internal carotid arteries, distal vertebral arteries, and basilar artery are widely patent. There is no significant stenosis, occlusion, or aneurysm seen within the bilateral ACAs, MCAs, or modern greek studies professor. The major dural venous sinuses are patent. Neck CTA: The aortic arch and proximal great vessels are widely patent. There is no significant stenosis, occlusion, or dissection identified within the bilateral common carotid, internal carotid, or vertebral arteries. IMPRESSION: 1. No significant stenosis, occlusion, or aneurysm within the [place]. 2. No significant stenosis, occlusion, or dissection identified within the carotid or vertebral arteries. 3. No acute intracranial abnormality. ACT 112: Negative or not required by law. Electronically signed by: Kevyn Mejía M.D. 11/16/2021 12:52 PM Head CTA 11/16/21 12:[address] NONCONTRAST, HEAD AND NECK CTA CT DOSE: 1046.33 mGy.cm HISTORY: ataxia/right arm/leg weakness TECHNIQUE: Multiaxial CT images of the head were performed without the use of intravenous contrast. Multiaxial CT images of the head and neck were performed following the intravenous administration of 120 cc of Optiray 300 to evaluate the major arterial structures. Maximal intensity projection images were also obtained. Automated exposure control was utilized for this study. A dose lowering technique was utilized adhering to the principles of ALARA. Comparison: None. Findings: Noncontrast head CT: Mild mucosal thickening within the right sphenoid sinus. The mastoid air cells are clear. Mild motion artifact. The ventricles and sulci are within normal limits. There is no mass, hematoma, midline shift, acute infarct. The calvarium and skull base are intact. Head CTA: Visualized intracranial internal carotid arteries, distal vertebral arteries, and basilar artery are widely patent. There is no significant stenosis, occlusion, or aneurysm seen within the bilateral ACAs, MCAs, or modern greek studies professor. The major dural venous sinuses are patent. Neck CTA: The aortic arch and proximal great vessels are widely patent. There is no significant stenosis, occlusion, or dissection identified within the bilateral common carotid, internal carotid, or vertebral arteries. IMPRESSION: 1. No significant stenosis, occlusion, or aneurysm within the [place]. 2. No significant stenosis, occlusion, or dissection identified within the carotid or vertebral arteries. 3. No acute intracranial abnormality. ACT 112: Negative or not required by law. Electronically signed by: Kevyn Mejía M.D. 11/16/2021 12:52 PM Neck CTA 11/16/21 12:[address] NONCONTRAST, HEAD AND NECK CTA CT DOSE: 1046.33 mGy.cm HISTORY: ataxia/right arm/leg weakness TECHNIQUE: Multiaxial CT images of the head were performed without the use of intravenous contrast. Multiaxial CT images of the head and neck were performed following the intravenous administration of 120 cc of Optiray 300 to evaluate the major arterial structures. Maximal intensity projection images were also obtained. Automated exposure control was utilized for this study. A dose lowering technique was utilized adhering to the principles of ALARA. Comparison: None. Findings: Noncontrast head CT: Mild mucosal thickening within the right sphenoid sinus. The mastoid air cells are clear. Mild motion artifact. The ventricles and sulci are within normal limits. There is no mass, hematoma, midline shift, acute infarct. The calvarium and skull base are intact. Head CTA: Visualized intracranial internal carotid arteries, distal vertebral arteries, and basilar artery are widely patent. There is no significant stenosis, occlusion, or aneurysm seen within the bilateral ACAs, MCAs, or modern greek studies professor. The major dural venous sinuses are patent. Neck CTA: The aortic arch and proximal great vessels are widely patent. There is no significant stenosis, occlusion, or dissection identified within the bilateral common carotid, internal carotid, or vertebral arteries. IMPRESSION: 1. No significant stenosis, occlusion, or aneurysm within the [place]. 2. No significant stenosis, occlusion, or dissection identified within the carotid or vertebral arteries. 3. No acute intracranial abnormality. ACT 112: Negative or not required by law. Electronically signed by: Kevyn Mejía M.D. 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
--- NOTE | 2021-11-16 17:00 | Electrocardiogram Report ---
Test Reason : Blood Pressure : / mmHG Vent. Rate : 056 BPM Atrial Rate : 056 BPM P-R Int : 126 ms QRS Dur : 094 ms QT Int : 438 ms P-R-T Axes : 007 061 026 degrees QTc Int : 422 ms Sinus bradycardia Otherwise normal ECG When compared with ECG of 17-APR-2016 17:08, Nonspecific T wave abnormality, worse in Anterior leads Confirmed by Thomas Krishnamurthy ([id number]) on 11/16/2021 5:00:03 PM Referred By: REFERRED SELF Confirmed By:Srinivas Krishnamurthy
[2021-11-16] MEDS ORDERED: PHARMACIST DISCHARGE MED REC CONSULT PRN (17:08)
[2021-11-16] MEDS ORDERED: LABETALOL HCL IV 5 MG/ML 20ML IV PRN (17:08)
[2021-11-16] MEDS ORDERED: ICU PROTOCOL FOR HYPERGLYCEMIA PRN (17:08)
[2021-11-16] MEDS ORDERED: GADOBUTROL 65ML VIAL IV ONE (17:43)
--- NOTE | 2021-11-16 18:08 | Magnetic Resonance Report ---
MR brain wo/w con CLINICAL HISTORY: right weak/ataxia eval for stroke TECHNIQUE: Multiplanar and multisequence MR images of the brain were obtained prior to and following administration of gadolinium contrast. Comparison: None available at the time of this dictation. FINDINGS: No abnormal restricted diffusion is identified. The white matter is unremarkable. The ventricular sys tem is normal in appearance. No mass or abnormal enhancement is seen. There is no mass effect or midl ine shift. There is no evidence of acute intraparenchymal hemorrhage. No extra axial fluid collection s are seen. The corpus callosum, pituitary gland, and cerebellar tonsils appear grossly unremarkable. Flow voids of the major intracranial arterial vessels are identified. The imaged portions of the para nasal sinuses, mastoid air cells, and orbits are unremarkable. IMPRESSION: No acute abnormalities. ACT 112: Negative or not required by law. Electronically signed by: Bhupinder Schwartz M.D. 11/16/2021 6:05 PM
[2021-11-16] MEDS: NICOTINE 21 MG/24 HR TDSY TD SCH (18:27)
[2021-11-17 05:56] LABS: Hematocrit (blood only) 40.5 % (34.1-44.9); Hemoglobin 13.6 g/dl (12.0-16.0); Mean Corpuscular Hemoglobin 30.6 pg (25.0-34.0); Mean Corpuscular Hgb Conc 33.6 g/dL (32.0-36.0); Mean Platelet Volume 9.9 fL (9.4-12.3); Platelet Count 259 K/uL (130-400); RDW Coefficient of Variation 12.5 % (11.5-14.5); RDW Standard Deviation 41.7 fL (36.4-46.3); Red Blood Count 4.45 M/uL (3.93-5.22); White Blood Count 6.38 K/ul (4.8-10.8)
[2021-11-17 06:18] LABS: BUN Creatinine Ratio 18.5 (10-20); Calcium 9.1 mg/dl (8.5-10.1); Creatinine Clr Calc Pharmacy 90.6 ml/min; Est GFR (African American) 112.2 ml/min; Est GFR (Non-African American) 96.8 ml/min; Potassium 3.4 mmol/L (3.5-5.1)
[2021-11-17 07:58] LABS: Estimated Average Glucose 105 mg/dl; Hemoglobin A1C 5.3 % (4.5-5.6)
--- NOTE | 2021-11-17 08:28 | Critical Care Progress Note ---
Date of Service November 17, 2021 Assessment & Plan (1) tPA adm status 24 hr [employer]: (2) Cephalgia: Plan Impression: 31-year-old female with acute onset of head fullness, paresthesias, and questionable aphasia concerning for potential stroke. She is status post TNKase administration at 1330 yesterday. She has been observed overnight in the ICU with no evidence of bleeding complications and she remains neurologically intact. Recommendations: 1. Post TNKase administration: Follow-up CT scan today at 130. If this is negative the patient can be dismissed from the ICU and potentially dismissed from the hospital depending on neurology and hospitalist evaluation. 2. Patient was reassured that her imaging appears normal 3. Formal neurology consultation pending 4. Will monitor blood pressure and ensure it stays within acceptable parameters. If the patient CT the head is negative at 130, critical care services will sign off. Additional management and ultimate disposition per primary admitting service and neurology. Admission and Anticipated Discharge Date Admission Date: November 16, 2021 Subjective Patient seen and examined. EMR reviewed. Discussed with overnight critical care JORJE as well as with bedside critical care nurse. Patient's neurological symptoms have resolved without sequelae. Her only complaint currently is some mild occipital head pressure. She completed her MRI and echocardiogram. No paresthesias. No double vision. No nausea or vomiting. No focal neurological deficits overnight. Her blood pressure has been stable. No signs of bleeding Review of Systems Review of Systems: All systems reviewed & are unremarkable except as noted in Subjective Physical Exam Constitutional: WD/WN, vitals as above Neck: trachea midline, no thyromegaly Respiratory: normal respiratory effort, lungs clear to auscultation Cardiovascular: RRR, no murmur, no edema Gastrointestinal (Abdomen): normal bowel sounds, soft, nontender, no hepatosplenomegaly Musculoskeletal: Extremities: extremities normal to inspection Skin: no rashes, warm and dry Lymphatic: no cervical lymphadenopathy Results & Data Results & Data ([facility]) Vital Signs (Past 12 Hours) Vital Signs Temp Pulse Resp BP Pulse Ox O2 Del Method 11/17/21 06:45 51 L 20 95/57 L 99 Room Air 11/17/21 05:45 59 L 20 96/49 L 98 Room Air 11/17/21 04:45 58 L 16 92/55 L 96 Room Air 11/17/21 03:45 36.7 C 56 L 18 100/63 95 Room Air 11/17/21 02:45 55 L 16 101/62 96 Room Air 11/17/21 01:45 52 L 20 98/58 L 97 Room Air 11/17/21 00:45 51 L 18 105/61 96 Room Air 11/16/21 23:45 36.8 C 59 L 27 H 104/61 97 Room Air 11/16/21 22:45 65 20 97/59 L 96 Room Air 11/16/21 21:45 64 16 107/66 97 Room Air 11/16/21 21:15 69 15 106/64 98 Room Air 11/16/21 20:45 61 18 106/56 L 98 Room Air Critical Care Results & Data Vital Signs (Past 12 Hours) Vital Signs Temp Pulse Resp BP Pulse Ox O2 Del Method 11/17/21 06:45 51 L 20 95/57 L 99 Room Air 11/17/21 05:45 59 L 20 96/49 L 98 Room Air 11/17/21 04:45 58 L 16 92/55 L 96 Room Air 11/17/21 03:45 36.7 C 56 L 18 100/63 95 Room Air 11/17/21 02:45 55 L 16 101/62 96 Room Air 11/17/21 01:45 52 L 20 98/58 L 97 Room Air 11/17/21 00:45 51 L 18 105/61 96 Room Air 11/16/21 23:45 36.8 C 59 L 27 H 104/61 97 Room Air 11/16/21 22:45 65 20 97/59 L 96 Room Air 11/16/21 21:45 64 16 107/66 97 Room Air 11/16/21 21:15 69 15 106/64 98 Room Air 11/16/21 20:45 61 18 106/56 L 98 Room Air Lab & Micro Results (Past 24 Hours) RBC 4.45 M/uL (3.93-5.22) 11/17/21 WBC 6.38 K/ul (4.8-10.8) 11/17/21 Hgb 13.6 g/dl (12.0-16.0) 11/17/21 Hct 40.5 % (34.1-44.9) 11/17/21 MCV 91.0 fL (80.0-100.0) 11/17/21 MCH 30.6 pg (25.0-34.0) 11/17/21 MCHC 33.6 g/dL (32.0-36.0) 11/17/21 RDW Standard Deviation 41.7 fL (36.4-46.3) 11/17/21 RDW Coefficient of Variation 12.5 % (11.5-14.5) 11/17/21 Plt Count 259 K/uL (130-400) 11/17/21 MPV 9.9 fL (9.4-12.3) 11/17/21 Neutrophils (%) (Auto) 60.4 % 11/16/21 Lymphocytes (%) (Auto) 28.2 % 11/16/21 Monocytes # (Auto) 0.69 K/uL (0.24-0.82) 11/16/21 Eosinophils # (Auto) 0.10 K/uL (0-0.50) 11/16/21 Immature Granulocyte % (Auto) 0.1 % 11/16/21 Neutrophils # (Auto) 4.50 K/uL (1.4-6.5) 11/16/21 Lymphocytes # (Auto) 2.10 K/uL (1.2-3.4) 11/16/21 Monocytes # (Auto) 0.69 K/uL (0.24-0.82) 11/16/21 Eosinophils # (Auto) 0.10 K/uL (0-0.50) 11/16/21 Basophils # (Auto) 0.05 K/uL (0-0.2) 11/16/21 Immature Granulocyte # (Auto) 0.01 K/uL (0.00-0.02) 2 Na 139 mmol/L (136-145) 11/17/21 K 3.4 mmol/L (3.5-5.1) L 11/17/21 Cl 105 mmol/L (98-107) 11/17/21 CO2 28 mmol/L (21-32) 11/17/21 Anion Gap 6 (3-11) 11/17/21 BUN 15 mg/dl (6-23) 11/17/21 Creatinine 0.81 mg/dl (0.6-1.2) 11/17/21 Estimated GFR ( Amer) 112.2 ml/min 11/17/21 Estimated GFR (Non-Af Amer) 96.8 ml/min 11/17/21 BUN/Creatinine Ratio 18.5 (10-20) 11/17/21 Glu 122 mg/dl (70-99(Fasting)) H 11/17/21 Ca 9.1 mg/dl (8.5-10.1) 11/17/21 Total Bilirubin 1.0 mg/dl (0.2-1.0) 11/16/21 AST 19 U/L (13-39) 11/16/21 ALT 15 U/L (7-52) 11/16/21 Alkaline Phosphatase 48 U/L (34-104) 11/16/21 TP 8.0 gm/dl (6.0-8.3) 11/16/21 Albumin 4.9 gm/dl (3.4-5.0) 11/16/21 Globulin 3.1 gm/dl (2.5-4.0) 11/16/21 Albumin/Globulin Ratio 1.6 (0.9-2) 11/16/21 Mg 1.9 mg/dl (1.7-2.4) 11/16/21 12:10 Calcium Level 9.1 mg/dl (8.5-10.1) 11/17/21 05:23 Prothromb Time International Ratio 1.1 (0.9-1.1) 11/16/21 12:1 0 Diagnostic Findings (Past 24 Hours) Head CT 11/16/21 12:[address] NONCONTRAST, HEAD AND NECK CTA CT DOSE: 1046.33 mGy.cm HISTORY: ataxia/right arm/leg weakness TECHNIQUE: Multiaxial CT images of the head were performed without the use of intravenous contrast. Multiaxial CT images of the head and neck were performed following the intravenous administration of 120 cc of Optiray 300 to evaluate the major arterial structures. Maximal intensity projection images were also obtained. Automated exposure control was utilized for this study. A dose lowering technique was utilized adhering to the principles of ALARA. Comparison: None. Findings: Noncontrast head CT: Mild mucosal thickening within the right sphenoid sinus. The mastoid air cells are clear. Mild motion artifact. The ventricles and sulci are within normal limits. There is no mass, hematoma, midline shift, acute infarct. The calvarium and skull base are intact. Head CTA: Visualized intracranial internal carotid arteries, distal vertebral arteries, and basilar artery are widely patent. There is no significant stenosis, occlusion, or aneurysm seen within the bilateral ACAs, MCAs, or legal aide. The major dural venous sinuses are patent. Neck CTA: The aortic arch and proximal great vessels are widely patent. There is no significant stenosis, occlusion, or dissection identified within the bilateral common carotid, internal carotid, or vertebral arteries. IMPRESSION: 1. No significant stenosis, occlusion, or aneurysm within the [place]. 2. No significant stenosis, occlusion, or dissection identified within the carotid or vertebral arteries. 3. No acute intracranial abnormality. ACT 112: Negative or not required by law. Electronically signed by: Kevyn Mejía M.D. 11/16/2021 12:52 PM Head CTA 11/16/21 12:[address] NONCONTRAST, HEAD AND NECK CTA CT DOSE: 1046.33 mGy.cm HISTORY: ataxia/right arm/leg weakness TECHNIQUE: Multiaxial CT images of the head were performed without the use of intravenous contrast. Multiaxial CT images of the head and neck were performed following the intravenous administration of 120 cc of Optiray 300 to evaluate the major arterial structures. Maximal intensity projection images were also obtained. Automated exposure control was utilized for this study. A dose lowering technique was utilized adhering to the principles of ALARA. Comparison: None. Findings: Noncontrast head CT: Mild mucosal thickening within the right sphenoid sinus. The mastoid air cells are clear. Mild motion artifact. The ventricles and sulci are within normal limits. There is no mass, hematoma, midline shift, acute inf arct. The calvarium and skull base are intact. Head CTA: Visualized intracranial internal carotid arteries, distal vertebral arteries, and basilar artery are widely patent. There is no significant stenosis, occlusion, or aneurysm seen within the bilateral ACAs, MCAs, or legal aide. The major dural venous sinuses are patent. Neck CTA: The aortic arch and proximal great vessels are widely patent. There is no significant stenosis, occlusion, or dissection identified within the bilateral common carotid, internal carotid, or vertebral arteries. IMPRESSION: 1. No significant stenosis, occlusion, or aneurysm within the [place]. 2. No significant stenosis, occlusion, or dissection identified within the carotid or vertebral arteries. 3. No acute intracranial abnormality. ACT 112: Negative or not required by law. Electronically signed by: Kevyn Mejía M.D. 11/16/2021 12:52 PM Neck CTA 11/16/21 12:[address] NONCONTRAST, HEAD AND NECK CTA CT DOSE: 1046.33 mGy.cm HISTORY: ataxia/right arm/leg weakness TECHNIQUE: Multiaxial CT images of the head were performed without the use of intravenous contrast. Multiaxial CT images of the head and neck were performed following the intravenous administration of 120 cc of Optiray 300 to evaluate the major arterial structures. Maximal intensity projection images were also obtained. Automated exposure control was utilized for this study. A dose lowering technique was utilized adhering to the principles of ALARA. Comparison: None. Findings: Noncontrast head CT: Mild mucosal thickening within the right sphenoid sinus. The mastoid air cells are clear. Mild motion artifact. The ventricles and sulci are within normal limits. There is no mass, hematoma, midline shift, acute infarct. The calvarium and skull base are intact. Head CTA: Visualized intracranial internal carotid arteries, distal vertebral arteries, and basilar artery are widely patent. There is no significant stenosis, occlusion, or aneurysm seen within the bilateral ACAs, MCAs, or legal aide. The major dural venous sinuses are patent. Neck CTA: The aortic arch and proximal great vessels are widely patent. There is no significant stenosis, occlusion, or dissection identified within the bilateral common carotid, internal carotid, or vertebral arteries. IMPRESSION: 1. No significant stenosis, occlusion, or aneurysm within the [place]. 2. No significant stenosis, occlusion, or dissection identified within the carot id or vertebral arteries. 3. No acute intracranial abnormality. ACT 112: Negative or not required by law. Electronically signed by: Kevyn Mejía M.D. 11/16/2021 12:52 PM Brain MRI 11/16/21 13:19 MR brain wo/w con CLINICAL HISTORY: right weak/ataxia eval for stroke TECHNIQUE: Multiplanar and multisequence MR images of the brain were obtained prior to and following administration of gadolinium contrast. Comparison: None available at the time of this dictation. FINDINGS: No abnormal restricted diffusion is identified. The white matter is unremarkable. The ventricular system is normal in appearance. No mass or abnormal enhancement is seen. There is no mass effect or midline shift. There is no evidence of acute intraparenchymal hemorrhage. No extra axial fluid collections are seen. The corpus callosum, pituitary gland, and cerebellar tonsils appear grossly unremarkable. Flow voids of the major intracranial arterial vessels are identified. The imaged portions of the paranasal sinuses, mastoid air cells, and orbits are unremarkab le. IMPRESSION: No acute abnormalities. ACT 112: Negative or not required by law. Electronically signed by: Bhupinder Schwartz M.D. 11/16/2021 6:05 PM I & O Totals 24 Hours 11/16/21 11/17/21 11/18/21 06:59 06:59 06:59 Intake Total 520 / 520 Balance 520 / 520 Cumulative 11/16/21 11:35 thru 11/17/21 06:00 Intake Total 520 Balance 520 RT Ventilator Mngmt (Last Documented) Ventilator Ordered Settings Respiratory Rate 20 11/17/21 06:45 Ventilator - PT Measurements Respiratory Rate 20 Coding Level of Care Code 70310 Subseq Hosp Care Lvl 2 Diagnoses tPA adm status 24 hr [employer] Z92.82 Cephalgia R51.9
[2021-11-17] MEDS: NICOTINE 21 MG/24 HR TDSY TD SCH (09:27)
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
--- NOTE | 2021-11-17 10:57 | Hospitalist Progress Note ---
Date of Service November 17, 2021 Assessment & Plan (1) Stroke-like symptoms: Plan: 31 y/o F with PMH head injury, seizure disorder, psoriatic arthritis, depression, anxiety presented to ER with c/o paresthesias to head started this morning. Paresthesias to entire head that radiated down her body ending at her waist, trouble thinking and expressing her thoughts, dizziness. In ER vitals stable. No significant electrolyte abnormality. Negative urine HCG CT Head: no acute intracranial abnormality CTA Head and neck: No significant stenosis, occlusion, or aneurysm within the [place] of [place]. No significant stenosis, occlusion, or dissection identified within the carotid or vertebral arteries. No acute intracranial abnormality. In ER was reported to be slow to answer questions, had stumbling gait, and right sided weakness. Tele stroke neurologist evaluation in ER. Patient received TNK 4.5hrs after initial symptom onset. During ER course patient has had improvement of symptoms and reports feels back to baseline cognitively and she was able to ambulate with nurse to bathroom without any gait disturbance. MRI brain is negative for acute abnormalities Tox screen is negative Unclear if this is due to some vascular insufficiency vs related to patient's hx of seizure/anxiety/depression Discussed with Neurologist. Left dysconjugate gaze thought to be old Recommends getting CT head 24h post TNK and MRI c spine for better evaluation of reported neck symptoms A1c normal Echo unremarkable Get TSH ANGELITA, AntiProt 2, KEENAN, ANCA pending (2) Psoriatic arthritis: Plan: On and hydroxychloroquine, and Cosentyx every 2 weeks. Last dose Cosentyx 11/15/21 Follows with rheumatology, Dr Sanders (3) Seizure: Plan: History head injury and history seizure disorder with tonic clonic type movements age [age]. Never on medication. No seizure activity since 2009 Monitor (4) ADHD: (5) Anxiety: (6) Depression: Plan: On Adderall, clonazepam, clonidine DVT Prophylaxis SCDs Full Code as per discussion with pt (7) Cephalgia: Admission and Anticipated Discharge Date Admission Date: November 16, 2021 Subjective Patient seen and examined Reported vibratory sensation in the head down the body that caused her to present to the hospital has resovled Reports chronic back of neck pain and headache associated with that Denied any blurry vision, dysphagia, odynophagia, localized weakness/sensory deficits. Denied fevers, chills, nausea, vomiting Denied chest pain, cough, shortness of breath Reports hx of anxiety/depression but states this is controlled Physical Exam Constitutional: + well hydrated; no acute distress Eyes: PERRL, conjunctivae normal, anicteric sclerae Upward conjugate gaze palsy on left eye ENMT: external ear and nose normal, oropharynx normal No nucchal rigidity or tenderness Normal ROM of neck Respiratory: normal respiratory effort, lungs clear to auscultation Cardiovascular: RRR, no murmur, no edema Gastrointestinal (Abdomen): normal bowel sounds, soft, nontender, no hepatosplenomegaly Musculoskeletal: no cyanosis or clubbing, extremities motor strength 5/5 Neurologic: PERRL, accomodation nl, no facial palsy, no dysarthria Power is normal across all joints No sensory deficits Psychiatric: A+Ox3, euthymic affect Results & Data Results & Data ([facility]) Vital Signs (Past 12 Hours) Vital Signs Temp Pulse Resp BP Pulse Ox O2 Del Method 11/17/21 09:45 68 17 108/70 98 11/17/21 08:45 64 16 116/74 97 Room Air 11/17/21 07:45 36.8 C 68 20 110/72 98 Room Air 11/17/21 06:45 51 L 20 95/57 L 99 Room Air 11/17/21 05:45 59 L 20 96/49 L 98 Room Air 11/17/21 04:45 58 L 16 92/55 L 96 Room Air 11/17/21 03:45 36.7 C 56 L 18 100/63 95 Room Air 11/17/21 02:45 55 L 16 101/62 96 Room Air 11/17/21 01:45 52 L 20 98/58 L 97 Room Air 11/17/21 00:45 51 L 18 105/61 96 Room Air 11/16/21 23:45 36.8 C 59 L 27 H 104/61 97 Room Air Laboratory Results Abnormal lab results 11/16/21 11/17/21 Range/Units 12:10 05:23 ESR 21 H (0-20) mm/hr Potassium 3.4 L (3.5-5.1) mmol/L Glucose 122 H (70-99(Fasting)) mg/dl
[2021-11-17] MEDS ORDERED: GADOBUTROL 10ML VIAL IV ONE (11:00)
--- NOTE | 2021-11-17 11:28 | Magnetic Resonance Report ---
CERVICAL SPINE MRI WITH AND WITHOUT CONTRAST HISTORY: Paresthesias. Chronic neck pain. Assess spinal cord, nerves and bones. TECHNIQUE: Multiplanar multisequence MRI of the cervical spine was performed both before and after th e intravenous administration of 5.5 cc of Gadavist contrast. COMPARISON STUDY: Neck CTA 11/16/2021. FINDINGS: Mild motion artifact. The visualized posterior fossa is unremarkable. The cervical spinal c ord is normal in course, caliber, and signal intensity. No fracture or subluxation within the cervica l spine. There is mild disc space narrowing at C6-C7. Prevertebral soft tissues and the C1-C2 interva l are intact. Endplate edema at the superior endplate of C7 is likely due to the degenerative change at this level. Postcontrast sequences show no areas of abnormal enhancement. C2-C3: No significant central canal or neural foraminal narrowing. C3-C4: No significant central canal or neural foraminal narrowing. C4-C5: No significant central canal or neural foraminal narrowing. C5-C6: No significant central canal or neural foraminal narrowing. C6-C7: Broad-based posterior disc protrusion resulting in near complete effacement of the anterior th ecal sac without cord deformity. This is consistent with mild central canal narrowing with an AP diam eter of 8.4 mm. No significant neural foraminal narrowing. C7-T1: Tiny broad-based posterior disc bulge without significant central canal or neural foraminal na rrowing. IMPRESSION: 1. No fracture or subluxation within the cervical spine. 2. Broad-based posterior disc protrusion at C6-C7 which results in mild central canal narrowing witho ut cord deformity. The ACT 112: Negative or not required by law. Electronically signed by: Kevyn Mejía M.D. 11/17/2021 11:26 AM
--- NOTE | 2021-11-17 13:56 | CT Scan Report ---
HEAD CT NONCONTRAST CT DOSE: 537.48 mGy.cm HISTORY: 24 hours post TNK, eval for bleed TECHNIQUE: Multiaxial CT images of the head were performed without the use of intravenous contrast. A utomated exposure control was utilized for this study. A dose lowering technique was utilized adheri ng to the principles of ALARA. Comparison: Head CT 11/16/2021. Findings: The paranasal sinuses and mastoid air cells are clear. The calvarium and skull base are int act. The ventricles and sulci are within normal limits. There is no mass, hematoma, midline shift, or acute infarct. Impression: No acute intracranial abnormality. ACT 112: Negative or not required by law. Electronically signed by: Kevyn Mejía M.D. 11/17/2021 1:53 PM
[2021-11-17] MEDS ORDERED: AMPHETAMINE ASP/SULF/DEXTRAMPH 10 MG TAB PO SCH (14:00)
[2021-11-17] MEDS: METOCLOPRAMIDE HCL 5 MG TABLET PO SCH ×2 (14:01→16:20)
[2021-11-17] MEDS ORDERED: STROKE PATIENT DISCHARGE STA (17:49)
--- NOTE | 2021-11-17 17:56 | Discharge Summary ---
Date of Service November 17, 2021 Admission HPI Per Admitting Provider Patient is 31 y/o F with PMH head injury, seizure disorder, psoriatic arthritis, depression, anxiety presented to ER with c/o paresthesias to head started this morning. Reports pins and needles sensation to entire head that radiated down her body ending at her waist. Also with trouble speaking and she states had trouble thinking and expressing her thoughts, as well as dizziness. She did not notice any extremity weakness but did have trouble ambulating normally. Her mother denies noting any facial drooping. Symptom onset at 9:00AM. Denies vision changes, syncope, CP, SOB. History hemorrhoidectomy 09/25/21 and had rectal bleeding on 09/30/21. Uses NuvaRing, has not used since 08/2021. Denies h/o DVT/PE or FH DVT/PE. Denies fever/chills, diaphoresis, N/V/D/C, neck pain, palpitations, cough, sore throat, choking, otalgia, rhinorrhea, abdominal pain, extremity edema, rashes, urinary symptoms. In ER found to be slow to answer questions, had stumbling gait, and right sided weakness. Tele stroke neurologist evaluation in ER. Patient received TNK 4.5hrs after initial symptom onset. During ER course patient has had improvement of symptoms and reports feels back to baseline cognitively and she was able to ambu late with nurse to bathroom without any gait disturbance. Admission Exam Per Admitting Provider General: no distress, WDWN Head: normocephalic, atraumatic Eyes: PERRL, EOM's intact, no nystagmus, conjunctiva non-injected, anicteric ENT: normal inspection external ears, nose, mucous membranes moist Neck: supple, trachea midline Lungs: clear, no respiratory distress, no wheezing/rhonchi/rales CV: RRR, no murmur, no JVD, no pretibial edema Abd: normal BS, soft, non-tender Ext: no cyanosis, no calf tenderness Neuro: A&O x 3, normal affect. face is strong and symmetric, hearing grossly intact, soft palate elevates symmetrically, no dysarthria, shoulder shrug intact, tongue is midline, normal movement, no fasciculations. Muscle tone normal. Strength 5/5 throughout Skin: warm, dry Principal Diagnosis Stroke like symptoms Discharge Exam Constitutional + well hydrated; no acute distress Eyes PERRL, conjunctivae normal, anicteric sclerae Upward conjugate gaze palsy on left eye ENMT external ear and nose normal, oropharynx normal Respiratory normal respiratory effort, lungs clear to auscultation Cardiovascular RRR, no murmur, no edema Gastrointestinal (Abdomen) normal bowel sounds, soft, nontender, no hepatosplenomegaly Musculoskeletal no cyanosis or clubbing, extremities motor strength 5/5 Psychiatric A+Ox3, euthymic affect Discharge Data Allergies Allergy/AdvReac Type Severity Reaction Status Date / Time No Known Allergies Allergy Verified 09/30/21 22:06 Consultations 11/16/21 13:45 ED Decision to Admit Stat 11/16/21 17:08 Consult Insurance Sales Professional Routine Consult Neurology Routine Ordered Studies 11/16/21 12:08 CT angio head w con Stat CT angio neck with con Stat CT head/brain wo con Stat Noncontrast head CT: Mild mucosal thickening within the right sphenoid sinus. The mastoid air cells are clear. Mild motion artifact. The ventricles and sulci are within normal limits. There is no mass, hematoma, midline shift, acute infarct. The calvarium and skull base are intact. Head CTA: Visualized intracranial internal carotid arteries, distal vertebral arteries, and basilar artery are widely patent. There is no significant stenosis, occlusion, or aneurysm seen within the bilateral ACAs, MCAs, or bell captain. The major dural venous sinuses are patent. Neck CTA: The aortic arch and proximal great vessels are widely patent. There is no significant stenosis, occlusion, or dissection identified within the bilateral common carotid, internal carotid, or vertebral arteries. IMPRESSION: 1. No significant stenosis, occlusion, or aneurysm within the [place]. 2. No significant stenosis, occlusion, or dissection identified within the carotid or vertebral arteries. 3. No acute intracranial abnormality. 11/16/21 13:19 MR brain wo/w con Stat No abnormal restricted diffusion is identified. The white matter is unremarkable. The ventricular system is normal in appearance. No mass or abnormal enhancement is seen. There is no mass effect or midline shift. There is no evidence of acute intraparenchymal hemorrhage. No extra axial fluid collections are seen. The corpus callosum, pituitary gland, and cerebellar tonsils appear grossly unremarkable. Flow voids of the major intracranial arterial vessels are identified. The imaged portions of the paranasal sinuses, mastoid air cells, and orbits are unremarkable. IMPRESSION: No acute abnormalities. 11/17/21 09:33 MRI Cervical [MR cervical spine wo/w con] Urgent Mild motion artifact. The visualized posterior fossa is unremarkable. The cervical spinal cord is normal in course, caliber, and signal intensity. No fracture or subluxation within the cervical spine. There is mild disc space narrowing at C6-C7. Prevertebral soft tissues and the C1-C2 interval are intact. Endplate edema at the superior endplate of C7 is likely due to the degenerative change at this level. Postcontrast sequences show no areas of abnormal enhancement. C2-C3: No significant central canal or neural foraminal narrowing. C3-C4: No significant central canal or neural foraminal narrowing. C4-C5: No significant central canal or neural foraminal narrowing. C5-C6: No significant central canal or neural foraminal narrowing. C6-C7: Broad-based posterior disc protrusion resulting in near complete effacement of the anterior thecal sac without cord deformity. This is consistent with mild central canal narrowing with an AP diameter of 8.4 mm. No significant neural foraminal narrowing. C7-T1: Tiny broad-based posterior disc bulge without significant central canal or neural foraminal narrowing. IMPRESSION: 1. No fracture or subluxation within the cervical spine. 2. Broad-based posterior disc protrusion at C6-C7 which results in mild central canal narrowing without cord deformity. 11/17/21 13:30 CT head/brain wo con Routine The paranasal sinuses and mastoid air cells are clear. The calvarium and skull base are intact. The ventricles and sulci are within normal limits. There is no mass, hematoma, midline shift, or acute infarct. Impression: No acute intracranial abnormality. Hospital Course (1) Stroke-like symptoms: 31 y/o F with PMH head injury, seizure disorder, psoriatic arthritis, depression, anxiety presented to ER with c/o paresthesias to head started this morning. Paresthesias to entire head that radiated down her body ending at her waist, trouble thinking and expressing her thoughts, dizziness. In ER vitals stable. No significant electrolyte abnormality. Negative urine HCG CT Head: no acute intracranial abnormality CTA Head and neck: No significant stenosis, occlusion, or aneurysm within the [place]. No significant stenosis, occlusion, or dissection identified within the carotid or vertebral arteries. No acute intracranial abnormality. In ER was reported to be slow to answer questions, had stumbling gait, and right sided weakness. Tele stroke neurologist evaluation in ER. Patient received TNK 4.5hrs after initial symptom onset. During ER course patient has had improvement of symptoms and reports feels back to baseline cognitively and she was able to ambulate with nurse to bathroom without any gait disturbance. MRI brain is negative for acute abnormalities Tox screen is negative Was evaluated by Neurology who does noted event was not consistent with a true TIA. Other possibilities include vascular insufficiency, vasospasms, stress, etc Left dysconjugate gaze thought to be old per Neurology A1c normal 5.3 TSH normal 0.79 Echo unremarkable ANGELITA, AntiProt 2, KEENAN, ANCA pending CT head today 24h after TNK was unremarkable MRI cervical spine noted disc protrusion at C6-7 without spinal cord deformity. Discussed findings with Neurology. Outpatient ortho spine evaluation recommended. Patient provided information (2) Psoriatic arthritis: On and hydroxychloroquine, and Cosentyx every 2 weeks. Last dose Cosentyx 11/15/21 Follows with rheumatology, Dr Sanders (3) Seizure: History head injury and history seizure disorder with tonic clonic type movements age 14-20. Never on medication. No seizure activity since 2009 Monitor (4) ADHD: (5) Anxiety: (6) Depression: On Adderall, clonazepam, clonidine DVT Prophylaxis SCDs Full Code as per discussion with pt (7) Cephalgia: Total Time Total Time Spent Total Time Spent (In Minutes): 45 Total Time Includes: Examination of the Patient, Discharge Planning, Medication Reconciliation and Communication With Other Providers Discharge Plan Discharge Items Patient Disposition: Home - Self-Care Reason For Visit: STROKE SYMPTOMS Discharge Diagnosis: Stroke like symptoms Activity: Resume your previous activity Non-emergency contact: Primary Care Provider Call non-emergency contact if: you have any medication questions and your symptoms worsen Follow-up/Referrals: Rudi Munoz MD [Primary Care Provider] - Diet: Regular Addtl Attending Provider Instructions: Ms Fernandez You came to the hospital with complaints of stroke like symptoms. You got a special medication (TNK) use for stroke in the ER. Your symptoms resolved. You were extensively evaluated with multiple scans (CT and MRI) which did not show stroke. Your MRI of neck did show disc protrusion at C6-7 without spinal cord deformity. Considering your chronic neck symptoms, please follow up with Orthopedic spine surgeon outpatient for evaluation. Please ensure follow up with your Primary Doctor. It was a pleasure taking care of you. Pending Studies at Discharge: Yes Stand-Alone Forms: My [facility] [employer], Smoking Cessation Medications and DC Order Prescriptions: Continued NuvaRing 0.12-0.015 mg/24 hr ring 1 vag ring Vaginal Q4WK Qty: 3 4RF clonazepam 0.5 mg tablet 1.5 mg PO DAILY dextroamphetamine-amphetamine 15 mg tablet 15 mg PO QAM Cosentyx Pen (2 Pens) 150 mg/mL pen injector 150 mg SUBCUT UD Rx Instructions: q2 weeks clonidine HCl 0.1 mg tablet 0.15 mg PO HS dextroamphetamine-amphetamine 10 mg tablet 10 mg PO QPM Rx Instructions: takes in afternoon clonazepam 0.5 mg tablet 1 mg PO PM multivitamin Tablet 1 tab PO DAILY metoclopramide HCl 5 mg tablet 5 mg PO TIDM cyanocobalamin (vitamin B-12) [Vitamin B-12] 500 mcg Tablet 500 mcg PO DAILY hydroxychloroquine 200 mg tablet 200 mg PO HS Discharge Orders: Discharge Order (Routine); Ordered 11/17/21 Ordered By: Meseret Cai Admission Data Admit Date/Time: 11/16/21 13:53 Attending Provider: Meseret Cai I. Admit Provider: Bret Hutchison Primary Care Provider: Rudi Munoz Other Providers: Bret Hutchison ; Elmer Tyler ; Jose Ty Other Interventions: Discharge Summary Assessment (RN) Last Done: 11/17/21 17:35
[2021-11-17] MEDS ORDERED: clonazePAM 1 MG TAB PO SCH (21:00)
[2021-11-17] MEDS ORDERED: cloNIDine HCL 0.1 MG TAB PO SCH (21:00)
[2021-11-17] MEDS ORDERED: HYDROXYCHLOROQUINE SULFATE 200 MG TAB PO SCH (21:00)
[2021-11-18] MEDS ORDERED: AMPHETAMINE ASP/SULF/DEXTRAMPH 10 MG TAB PO SCH (09:00)
[2021-11-18] MEDS ORDERED: MULTIVITAMIN TAB PO SCH (09:00)
[2021-11-18] MEDS ORDERED: CYANOCOBALAMIN (B-12) 500 MCG TABLET PO SCH (09:00)
[2021-11-23 13:46] LABS: ANCA Screen Negative (Negative); Anti Nuclear Antibody Screen NEGATIVE (NEGATIVE); Myeloperoxidase Ab <1.0 AI (<1.0); Proteinase-3 AB <1.0 AI (<1.0)
== END 2021-11-17 18:20 | disposition home or self-care (01) | DRG 93 ==
LOC: ED 11:35 → 1E 13:53 → SUATTDRO 13:53 → 1E 16:20